=== PATIENT | female | born 1935 | race Caucasian/White ===

== ENCOUNTER → 2016-10-05 | Outpatient (CLI) | payer MEDICARE, MEDICAID ==
[~2016-10-05] MED LIST: ACET-2890 PO; ALBU18HF2 ORAL INH; ASCO-296 PO; BUDE180A INH; CITA-108 PO; CLOP75TA PO; CYAN100099 PO; DILT120C58 PO; DOCU-118 PO; FERR-22 PO; FOLI1TAB15 PO; FURO40TA70 PO; GABA-329 PO; GUAI600T PO; IPRA3AMP AEROSOL; LACO150T2 PO; LEVO125T11 PO; LORA1TAB3 PO; MAGN400O4 PO; MENT71OI TOP; MIRT30TA6 PO; ONDA-55 PO; PANT40TA27 PO; PHEN300C4 PO; POLY17PO6 PO; POTA10CA32 PO; PSYL1PAC PO; RISP0.5T12 PO; ROPI1TAB12 PO; SPIR25TA69 PO; [UNRECOGNIZED DRUG - CODE] PO
[2016-10-05 07:08] LABS: BASOPHILS # (AUTO) 0.1 T/MM3 (0-0.2); BASOPHILS % (AUTO) 0.8 % (0-2); EOSINOPHILS # (AUTO) 0.3 T/MM3 (0-0.5); EOSINOPHILS % (AUTO) 4.4 % (0-4); HCT - HEMATOCRIT 38.5 % (36-46); HGB - HEMOGLOBIN 12.7 GM/DL (12-16); IMMATURE GRANULOCYTE # (AUTO) 0.02 T/MM3 (0.00-0.03); IMMATURE GRANULOCYTE % (AUTO) 0.3 % (0.0-0.5); LYMPHOCYTES # (AUTO) 1.8 T/MM3 (1-4.8); LYMPHOCYTES % (AUTO) 23.5 % (23-45); MEAN CORPUSCULAR HGB 32.6 UUG (26-34); MEAN PLATELET VOLUME 10.6 UM3 (9.4-12.4); MONOCYTES # (AUTO) 0.6 T/MM3 (0-0.8); MONOCYTES % (AUTO) 7.3 % (0-9.0); NEUTROPHILS #(AUTO)-ABSOLUTE 4.8 T/MM3 (1.8-7.7); NEUTROPHILS % (AUTO) 63.7 % (33-66); RED BLOOD COUNT 3.89 M/MM3 (4.00-5.20); WBC - WHITE BLOOD COUNT 7.5 T/MM3 (4.5-11.0)
== END ==
LOC: LABNH.A202 00:20
PROVIDERS: ATTEND Internal Medicine
DX: D64.9 Anemia, unspecified (principal)
CPT/HCPCS: 36415; 85025; P9604

== ENCOUNTER → 2016-10-12 | Outpatient (CLI) | payer MEDICARE, MEDICAID | LOC: LABNH.A213 00:51 | PROVIDERS: ATTEND Internal Medicine | DX: Z53.8 Procedure and treatment not carried out for other reasons (principal) | CPT/HCPCS: 36415 ==

== ENCOUNTER → 2016-11-30 | Outpatient (CLI) | payer MEDICARE, MEDICAID ==
--- NOTE | 2016-11-30 10:14 | DI ---
Indication: ITS.REASON: M25.571 RIGHT ANKLE PAIN PROCEDURE: ANKLE RIGHT 3 VIEW: Encounter: Initial Comparison: June 03, 2011 Findings: There is no acute fracture, dislocation or malalignment identified. Mild lateral soft tissue swelling. Impression: No acute osseous abnormality. .
== END ==
LOC: IMA 09:29
PROVIDERS: ATTEND Nurse Practitioner Family
DX: M79.89 Other specified soft tissue disorders (principal); Z91.81 History of falling; M25.571 Pain in right ankle and joints of right foot

== ENCOUNTER → 2016-11-30 | Outpatient (CLI) | payer MEDICARE, MEDICAID ==
[2016-11-30 08:20] LABS: BASOPHILS # (AUTO) 0.1 T/MM3 (0-0.2); BASOPHILS % (AUTO) 1.1 % (0-2); EOSINOPHILS # (AUTO) 0.3 T/MM3 (0-0.5); EOSINOPHILS % (AUTO) 4.2 % (0-4); HCT - HEMATOCRIT 40.8 % (36-46); HGB - HEMOGLOBIN 13.4 GM/DL (12-16); IMMATURE GRANULOCYTE # (AUTO) 0.03 T/MM3 (0.00-0.03); IMMATURE GRANULOCYTE % (AUTO) 0.4 % (0.0-0.5); LYMPHOCYTES # (AUTO) 1.8 T/MM3 (1-4.8); LYMPHOCYTES % (AUTO) 23.8 % (23-45); MEAN CORPUSCULAR HGB 32.7 UUG (26-34); MEAN CORPUSCULAR HGB CONC(MCHC 32.8 GM/DL (31-37); MEAN CORPUSCULAR VOLUME 99.5 UM3 (80-100); MEAN PLATELET VOLUME 10.7 UM3 (9.4-12.4); MONOCYTES # (AUTO) 0.4 T/MM3 (0-0.8); MONOCYTES % (AUTO) 5.6 % (0-9.0); NEUTROPHILS #(AUTO)-ABSOLUTE 4.9 T/MM3 (1.8-7.7); NEUTROPHILS % (AUTO) 64.9 % (33-66); WBC - WHITE BLOOD COUNT 7.6 T/MM3 (4.5-11.0)
== END ==
LOC: LABNH.A213 01:08
PROVIDERS: ATTEND Internal Medicine
DX: D64.9 Anemia, unspecified (principal)
CPT/HCPCS: 36415; 85025; P9604

== ENCOUNTER 2017-04-25 19:37 | Inpatient (IN) ==
--- OUTSIDE RECORDS SUMMARY | 2017-04-25 20:11 | External Medical Summary ---
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, not intractable, without status epilepticus Assessment Therapeutic drug monitoring Z51.81 Active Assessment Essential (primary) hypertension I10 Active Assessment Hyperlipidemia, mixed E78.2 Active Problem 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 Assessment 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 Active unspecified occlusion or stenosis of unspecified cerebral artery Problem Gastro-esophageal reflux disease K21.9 Active without esophagitis Assessment Bipolar disorder, unspecified F31.9 Active Problem Unspecified asthma, uncomplicated J45.909 Active Problem 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 Active unspecified occlusion or stenosis of unspecified cerebral artery Problem Hypothyroidism, unspecified E03.9 Active Problem Solitary pulmonary nodule R91.1 Active Problem Bipolar disorder, unspecified F31.9 Active Problem Other asthma J45.998 Active Assessment Adjustment disorder with depressed F43.21 Active mood Problem Adjustment disorder with depressed F43.21 Active mood Assessment Solitary pulmonary nodule R91.1 Active Problem 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, not intractable, without status epilepticus Problem Essential (primary) hypertension I10 Active Problem Hyperlipidemia, mixed E78.2 Active Problem 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 Problem Unspecified anemia 285.9 Active Problem Hypertension, benign 401.1 Active Problem Gastro-esophageal reflux disease K21.9 Active without esophagitis Problem Depressive disorder, not elsewhere 311 Active classified Problem Hypothyroid 244.9 Active Problem Mixed hyperlipidemia 272.2 Active Problem Mixed hyperlipidemia 272.2 Active Problem 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 Medications Medication Code Code Instructions Start End Status Dosage System Date Date ibuprofen NDC 0 200 Oral 3 2 tab Times a day Capsaicin [facility] [address]-41 0.075 % May 27Jul 17 application Externally 2015 10, to knees every 8 hours 2016 bilaterally as needed for pain Mirtazapine [facility] [address]-47 30 MG Orally December 02, 1 tablet Once a day, at 2015 before bedtime bedtime in the evening Diltiazem HCl [facility] [address]-26 120 MG Orally 1 tablet daily before meals Docusate Sodium [facility] [address]-65 100 MG Orally 1 capsule as Twice every needed day Phenytoin [facility] [address]-45 100 MG/4ML 300 mg Orally daily Zofran ODT [facility] [address]-07 4 MG Orally 1 every 6 hours as needed Folic Acid [facility] [address]-46 1 MG Orally Sept Jun 1 tablet Once every 15, 14, other day 2015 2015 Budesonide [facility] 0 180mcg BID December 02 (Inhalation) 2015 Ipratropium-Albut [facility] [address]-44 0.5-2.5 (3) 3 ml josephine MG/3ML Inhalation Four times a day Lacosamide [facility] [address]-23 150 MG Orally 1 tablet Twice a day Protonix [facility] [address]-62 40 MG Orally October 1 tablet Once a day 2015 Magnesium [facility] [address]-33 400 MG/5ML 30 ml Hydroxide Orally Once a day, as needed for constipation Menthol-Zinc [facility] [address]-92 0.45-20 % as needed Oxide Externally Twice every day as needed for rash Ropinirole HCl [facility] [address]-58 1 MG Orally 1 tablet BID Lorazepam [facility] [address]-15 1 MG Orally 1 tablet every 6 hours Diltiazem HCl ER [facility] 44814848544 120 TAKE ONE Coated Beads CAPSULE BY MOUTH DAILY Psyllium [facility] [address]-28 33 % Orally 3,4 grams daily Polyethylene [facility] [address]-87 17 Once a day 17 gram Glycol 3350 Furosemide [facility] [address]-51 40 MG Orally 1 tablet Once a day Guaifenesin [facility] [address]-92 600 mg Orally December 02, 1 tablet every 12 hours 2015 as needed for congestion Levothyroxine [facility] [address]-00 25 MCG Orally two and Sodium Once a day one-half total dose tablet on an 62.5 mcg empty stomach in the morning Spironolactone [facility] [address]-30 25 MG Orally 1 tablet BID Ascorbic Acid [facility] [address]-49 500 MG Orally 1 tablet Once a day Ventolin HFA [facility] [address]-89 108 (90 Base) 2 puffs as MCG/ACT needed Inhalation every 6hrs Gabapentin [facility] [address]-81 800 MG Orally 1 tablet Three times a day Risperidone [facility] [address]-26 0.5 MG Orally 1 tablet Twice every day Citalopram [facility] [address]-42 40 MG Orally 1 tablet Hydrobromide Once a day Bisacodyl [facility] [address]-72 5 MG Orally 1 tablet as Once a day needed Ferrous Sulfate [facility] [address]-96 325 (65 Fe) MG 1 tablet Orally Once a day Acetaminophen [facility] 288[address]24 650 MG Orally not defined Procedures Procedure Coding System Code Date OFFICE VISIT, EST-LOW COMPLEXITY (15 MIN.) CPT-4 67247 Jun 13, 2016 [facility] visit Established Patient CPT-4 G0467 Jun 13, 2016 Vital Signs Date/Time: Jun 13, 2016 Cardiac Monitoring Heart Rate 80 /min Temperature 97.1 F Weight 186. lbs Oximetry 95% on RA % Respiratory Rate 20 /min Blood Pressure Diastolic 72 mm Hg Blood Pressure Systolic 135 mm Hg Results No Known Results Summary Purpose eClinicalWorks Submission
--- OUTSIDE RECORDS SUMMARY | 2017-04-25 20:11 | External Medical Summary ---
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
--- OUTSIDE RECORDS SUMMARY | 2017-04-25 20:11 | External Medical Summary ---
[...] Medications Results No Known Results Summary Purpose [facility] Submission
--- OUTSIDE RECORDS SUMMARY | 2017-04-25 20:11 | External Medical Summary ---
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, not intractable, without status epilepticus Problem Gastro-esophageal reflux disease K21.9 Active without esophagitis Problem 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
--- OUTSIDE RECORDS SUMMARY | 2017-04-25 20:11 | External Medical Summary ---
[...] Medications Results No Known Results Summary Purpose [employer] Submission
--- OUTSIDE RECORDS SUMMARY | 2017-04-25 20:11 | External Medical Summary ---
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
--- OUTSIDE RECORDS SUMMARY | 2017-04-25 20:12 | External Medical Summary ---
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 Problem Mixed hyperlipidemia 272.2 Active Problem Unspecified anemia 285.9 Active Problem Depressive disorder, not 311 Active elsewhere classified Problem Mixed hyperlipidemia 272.2 Active Problem Hypertension, benign 401.1 Active Medications Medication Code Code Instructions Start End Status Dosage System Date Date Cyanocobalamin [facility] 34915-19 1000 MCG Orally 1 tablet 33-98 [place] [address]-11 75 MG Orally 1 tablet Bisulfate 14-05 [place] [address]-34 1 MG Orally Once 1 tablet 1 18-25 a day to 3 hours [place] [address]-23 108 (90 Base) 2 puffs as 82-20 MCG/ACT needed Inhalation every 4 [place] [address]-42 400 MG/5ML 5 ml as Hydroxide 32-40 Orally [place] [address]-71 20 MG Orally 2 tablets 43-81 Once [place] [address]-98 0.45-20 % not defined 32-03 [place] [address]-56 650 MG Orally not defined [address] [place] [address]-67 90 MCG/ACT 1 puff Flexhaler 17-06 Inhalation Twice a day Furosemide NDC 30968-34 40 MG Orally 1 tablet 99-25 [place] [address]-39 0.5-2.5 (3) 3 ml rol 23-73 MG/3ML Inhalation [place] [address]-76 800 MG Orally 1 tablet 44-01 Three times a day Phenytoin [facility] 72381-32 100 MG/4ML 300 mg 33-58 Orally Refresh [facility] 13591-40 1 % Ophthalmic 1 drop into 05-15 24 time(s) a day affected eye as needed Potassium Chloride [facility] 51580-99 20 MEQ/15ML 15 ml 00-16 (10%) Orally Once a day Bisacodyl [facility] 90724-12 5 MG Orally Once 1 tablet as 50-01 a day needed Citalopram [facility] 61052-31 40 MG Orally 0.5 tablet Hydrobromide 42-01 Once a day Spironolactone [facility] 87693-12 25 MG Orally 1 tablet 03-11 Once a day Polyethylene [facility] 62466-54 not defined Glycol 3350 89-01 Zofran ODT [facility] 91393-31 4 MG Orally not defined 69-00 Ascorbic Acid [facility] 23022-19 500 MG Orally 1 tablet 76-01 Once a day Lorazepam [facility] 05095-90 1 MG Orally 1 tablet 21-01 Twice a day Risperidone [facility] 77282-98 0.5 MG Orally 1 tablet 25-05 Once a day Docusate Sodium [facility] 31374-88 100 MG Orally 1 capsule 63-00 Once a day as needed Psyllium [facility] 73726-16 33 % Orally not defined 95-13 Ferrous Sulfate [facility] 23718-36 325 (65 Fe) MG 1 tablet 28-00 Orally Once a day Calcium Carbonate [facility] 05437-93 1500 MG Orally 1 tablet 11-12 Twice a day with food Lacosamide [facility] 44196-95 150 MG Orally 1 tablet 79-35 Twice a day Diltiazem HCl [facility] 97954-08 120 MG Orally 1 tablet 21-01 daily before meals Folic Acid [facility] 83272-39 1 MG Orally Once 1 tablet 07-19 a day Levothyroxine [facility] 46404-44 50 MCG Orally 1 tablet on Sodium 54-00 Once a day an empty stomach in the morning Procedures Procedure Coding System Code Date EXCISION, BENIGN LESION MARINA 0.6-1 CM CPT-4 86980 January 20, 2015 Lidocaine CPT-4 J2001 January 20, 2015 Vital Signs Date/Time: January 20, 2015 Cardiac Monitoring Heart Rate 63 /min Temperature 97.8 F Results No Known Results Summary Purpose eClinicalWorks Submission
--- OUTSIDE RECORDS SUMMARY | 2017-04-25 20:12 | External Medical Summary ---
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 unspecified occlusion or stenosis of unspecified cerebral artery Problem Hypothyroidism, unspecified E03.9 Active Problem Solitary pulmonary nodule R91.1 Active Problem Other asthma J45.998 Active Problem Bipolar disorder, unspecified F31.9 Active Problem Adjustment disorder with depressed F43.21 Active mood Problem 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
--- OUTSIDE RECORDS SUMMARY | 2017-04-25 20:12 | External Medical Summary ---
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998 Active Problem Unspecified anemia 285.9 Active Problem Hypertension, benign 401.1 Active Problem Gastro-esophageal reflux disease K21.9 Active without esophagitis Problem Mixed hyperlipidemia 272.2 Active Problem Depressive disorder, not elsewhere 311 Active classified Problem 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
--- OUTSIDE RECORDS SUMMARY | 2017-04-25 20:12 | External Medical Summary ---
:1934 Author Organization eClinicalWorks Care Team Providers Name Role Phone Crow Burton Provider Role Unavailable Allergies, Adverse Reactions, Alerts Substance Reaction Event Type Penicillin Info Not Available Drug Allergy Codeine Sulfate Info Not Available Drug Allergy Aspirin Info Not Available Drug Allergy Problems Problem Type Condition ICD-9 Code Onset Dates Condition Status Assessment Pain in soft tissues of limb 729.5 Active Problem Asthma 493.90 Active Assessment Sprain and strain of other 840.8 Active specified sites of shoulder and upper arm Problem Hypothyroid 244.9 Active Problem 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 Problem Mixed hyperlipidemia 272.2 Active Problem Unspecified anemia 285.9 Active Problem Depressive disorder, not 311 Active elsewhere classified Problem Mixed hyperlipidemia 272.2 Active Problem Hypertension, benign 401.1 Active Assessment Other specified diseases of 289.89 Active blood and blood-forming organs Assessment Hypothyroid 244.9 Active Assessment Mixed hyperlipidemia 272.2 Active Assessment Unspecified epilepsy without 345.90 Active mention of intractable epilepsy Assessment Hypertension, benign 401.1 Active Medications Medication Code Code Instructions Start End Status Dosage System Date Date Gabapentin [facility] 50804-39 800 MG Orally 1 tablet 44-01 [place] [address]-74 40 MG Orally 1 tablet 99-25 Once a day Levothyroxine [facility] 73795-43 25 MCG Orally two and Sodium 53-00 Once a day one-half tablet on an empty stomach in the morning Ferrous Sulfate [facility] 11987-17 325 (65 Fe) MG 1 tablet 28-00 Orally Once a day Polyethylene [facility] 82876-48 not defined Glycol 3350 89-01 Pulmicort [facility] 23553-80 90 MCG/ACT 1 puff Flexhaler 17-06 Inhalation [place] [address]-50 1 MG Orally Once 1 tablet 1 18-25 a day to 3 hours before bedtime Ipratropium-Albute [facility] 58243-11 0.5-2.5 (3) 3 ml rol 23-73 MG/3ML Inhalation Four times a day Diltiazem HCl [facility] 30385-71 120 MG Orally 1 tablet 21-01 daily before meals Refresh [facility] 56387-07 1 % Ophthalmic 1 drop into -15 24 time(s) a day affected eye as needed Psyllium [facility] 40414-29 33 % Orally not defined 95-13 Risperidone [facility] 18710-28 0.5 MG Orally 1 tablet 25-05 Once a day Ventolin HFA [facility] 85666-05 108 (90 Base) 2 puffs as 82-20 MCG/ACT needed Inhalation every 4 hrs Lorazepam [facility] 48568-93 1 MG Orally 1 tablet 21-01 Twice a day Clopidogrel [facility] 51955-29 75 MG Orally 1 tablet Bisulfate 14-05 Once a day Magnesium [facility] 92616-52 400 MG/5ML 5 ml as Hydroxide 32-40 Orally Four needed times a day Lacosamide [facility] 20017-91 150 MG Orally 1 tablet 79-35 Twice a day Cyanocobalamin [facility] 66866-31 1000 MCG Orally 1 tablet 33-98 Once a day Ascorbic Acid [facility] 68604-06 500 MG Orally 1 tablet 76-01 Once a day Calcium Carbonate [facility] 82656-40 1500 MG Orally 1 tablet 11-12 Twice a day with food Folic Acid [facility] 16571-76 1 MG Orally Once 1 tablet 07-19 a day Docusate Sodium [facility] 65311-73 100 MG Orally 1 capsule 63-00 Once a day as needed Bisacodyl [facility] 96641-46 5 MG Orally Once 1 tablet as 50-01 a day needed Protonix [facility] 37545-57 20 MG Orally 2 tablets 43-81 Once a day Citalopram [facility] 30886-07 40 MG Orally 0.5 tablet Hydrobromide 42-01 Once a day Zofran ODT [facility] 51925-17 4 MG Orally not defined 69-00 Acetaminophen [facility] 16859-10 650 MG Orally not defined 607 Potassium Chloride [facility] 13848-98 20 MEQ/15ML 15 ml 00-16 (10%) Orally Once a day Phenytoin [facility] 20144-88 100 MG/4ML 300 mg 33-58 Orally Menthol-Zinc Oxide [facility] 84304-15 0.45-20 % not defined 32-03 Externally Spironolactone [facility] 00115-98 25 MG Orally 1 tablet 03-11 Once a day Procedures Procedure Coding System Code Date OFFICE VISIT, EST-MOD. COMPLEXITY (25 MIN) CPT-4 74054 January 20, 2015 [facility] visit Established Patient CPT-4 G0467 January 20, 2015 Vital Signs Date/Time: January 20, 2015 Cardiac Monitoring Heart Rate 63 /min Weight 188.0 7/4 lbs Temperature 97.8 F Oximetry 94 % Respiratory Rate 16 /min Blood Pressure Diastolic 84 mm Hg Blood Pressure Systolic 128 mm Hg Results No Known Results Summary Purpose eClinicalWorks Submission
--- OUTSIDE RECORDS SUMMARY | 2017-04-25 20:12 | External Medical Summary ---
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
--- OUTSIDE RECORDS SUMMARY | 2017-04-25 20:12 | External Medical Summary ---
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, not intractable, without status epilepticus Problem Mixed hyperlipidemia 272.2 Active Problem Hypothyroid 244.9 Active Problem Gastro-esophageal reflux disease K21.9 Active without esophagitis Problem 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
--- OUTSIDE RECORDS SUMMARY | 2017-04-25 20:12 | External Medical Summary ---
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 Problem Hypothyroidism, unspecified E03.9 Active Problem Unspecified asthma, uncomplicated J45.909 Active Assessment Essential (primary) hypertension I10 Active Assessment Anemia, unspecified D64.9 Active Assessment Unspecified asthma, uncomplicated J45.909 Active Assessment Hypothyroidism, unspecified E03.9 Active Problem Depressive disorder, not elsewhere 311 Active classified Problem Unspecified anemia 285.9 Active Problem Other asthma J45.998 Active Problem Hypertension, benign 401.1 Active Problem Gastro-esophageal reflux disease K21.9 Active without esophagitis Problem Mixed hyperlipidemia 272.2 Active Medications Medication Code Code Instructions Start End Status Dosage [place] [address]-57 100 MG/4ML 300 mg 33-58 [place] [address]-01 4 MG Orally 1 69-00 every 6 [place] [address]-72 150 MG Orally 1 tablet 79-35 [place] [address]-81 650 MG Orally not 607 defined Budesonide NDC 0 180mcg BID December 02 (Inhalation) 2015 [place] [address]-35 120 MG Orally 1 tablet 21-01 daily before meals Guaifenesin [facility] 19324-54 600 mg Orally December 02, 1 tablet 73-06 every 12 hours 2015 [place] [address]-41 400 MG/5ML 30 ml Hydroxide 32-40 Orally Once a day, [place] [address]-06 40 MG Orally November 04, 1 tablet 41-81 Once a day [address] [facility] 16007-59 1 MG Orally 1 tablet 21- every [address] [facility] 85210-15 25 MCG Orally two and Sodium 53-00 Once a day total one-half dose 62.5 mcg tablet on an empty stomach in the morning Mirtazapine [facility] 70090-63 30 MG Orally December 02, 1 tablet - Once a day, at 2015 before bedtime bedtime in the evening Folic Acid [facility] 46018-78 1 MG Orally Once Mar 31, Jun 29, 1 tablet -19 every other day 2015 [address] [facility] 26040-51 5 MG Orally Once 1 tablet 50-01 a day as needed Menthol-Zinc Oxide [facility] 78336-73 0.45-20 % as needed 32-03 Externally Twice every day [place] [address]-65 40 MG Orally 1 tablet 99-25 Once a day Ferrous Sulfate [facility] 67157-89 325 (65 Fe) MG 1 tablet 28-00 Orally Once a day Ascorbic Acid [facility] 72256-91 500 MG Orally 1 tablet 76-01 Once a day Citalopram [facility] 04712-81 40 MG Orally 1 tablet Hydrobromide 42-01 Once a day Docusate Sodium [facility] 48487-83 100 MG Orally 1 capsule 63-00 Twice every day as needed Gabapentin [facility] 05494-76 800 MG Orally 1 tablet 44-01 Three times a day Psyllium [facility] 05332-17 33 % Orally 3,4 grams 95-[address] [facility] 61503-24 0.5 MG Orally 1 tablet 25-05 Twice every day Ipratropium-Albute [facility] 07085-63 0.5-2.5 (3) 3 ml rol 23-73 MG/3ML Inhalation Four times a day Ventolin HFA [facility] 34726-38 108 (90 Base) 2 puffs as 82-20 MCG/ACT needed Inhalation every 6hrs Spironolactone [facility] 22264-55 25 MG Orally BID 1 tablet 03- Polyethylene [facility] 97529-84 17 Once a day 17 gram Glycol 3350 89-[address] [facility] 25161-07 1 MG Orally BID 1 tablet - Procedures Procedure Coding System Code Date OFFICE VISIT, EST-LOW COMPLEXITY (15 MIN.) CPT-4 47270 Apr 08, 2016 [facility] visit Established Patient CPT-4 G0467 Apr 08, 2016 Vital Signs Date/Time: Apr 08, 2016 Cardiac Monitoring Heart Rate 62 /min Temperature 98.0 on 04/06/16 F Weight 180.8 lbs Oximetry 95% on RA % Respiratory Rate 16 /min Blood Pressure Diastolic 63 mm Hg Blood Pressure Systolic 116 mm Hg Results No Known Results Summary Purpose eClinicalWorks Submission
--- OUTSIDE RECORDS SUMMARY | 2017-04-25 20:12 | External Medical Summary ---
:1934 Author Organization [employer] Care Team Providers Name Role Phone Crow [...] Active classified Problem Unspecified anemia 285.9 Active Medications No Known Medications Results No Known Results Summary Purpose [employer] Submission
--- OUTSIDE RECORDS SUMMARY | 2017-04-25 20:12 | External Medical Summary ---
:1934 Author Organization [employer] Care Team Providers Name Role Phone Crow [...] Medications Results No Known Results Summary Purpose [employer] Submission
--- OUTSIDE RECORDS SUMMARY | 2017-04-25 20:12 | External Medical Summary ---
[...] classified Problem Unspecified anemia 285.9 Active Medications Medication Code System Code Instructions Start End Date Status Dosage Date Folic Acid [facility] 67810-938 1 MG Orally Once Mar 31, Jun 29, 1 tablet 7-19 every other day 2015 2015 Diltiazem HCl [facility] 55710-989 120 MG Orally 1 tablet 1-01 daily before meals Results No Known Results Summary Purpose eClinicalWorks Submission
--- OUTSIDE RECORDS SUMMARY | 2017-04-25 20:12 | External Medical Summary ---
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
--- OUTSIDE RECORDS SUMMARY | 2017-04-25 20:12 | External Medical Summary ---
[...] Medications Results No Known Results Summary Purpose [employer] Submission
--- OUTSIDE RECORDS SUMMARY | 2017-04-25 20:12 | External Medical Summary ---
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
--- OUTSIDE RECORDS SUMMARY | 2017-04-25 20:12 | External Medical Summary ---
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
--- OUTSIDE RECORDS SUMMARY | 2017-04-25 20:12 | External Medical Summary ---
[...] intractable epilepsy Problem Mixed hyperlipidemia 272.2 Active Assessment Gastro-esophageal reflux disease K21.9 Active without esophagitis Assessment Unspecified asthma, uncomplicated J45.909 Active Assessment Acute cystitis without hematuria N30.00 Active Assessment Anemia, unspecified D64.9 Active Problem Other asthma J45.998 Active Assessment Hypothyroidism, unspecified E03.9 Active Problem Gastro-esophageal reflux disease K21.9 Active without esophagitis Assessment Acute bronchitis, unspecified J20.9 Active Problem Depressive disorder, not elsewhere 311 Active classified Medications Medication Code Code Instructions Start End Status Dosage System Date Menthol-Zinc Oxide [facility] 67205-47 0.45-20 % as needed 32-03 Externally Twice every day [place] [address]-57 40 MG Orally 1 tablet 99-25 [place] [address]-99 100 MG Orally 1 capsule 63-00 Twice [place] [address]-70 40 MG Orally November 04, tablet 41-81 Once a day 2015 [place] [address]-95 1 MG Orally BID 1 tablet 18-25 [place] [address]-02 75 MG Orally 1 tablet Bisulfate 14-05 Once a day Diltiazem HCl [facility] 05476-44 120 MG Orally 1 tablet 21-01 daily before meals Magnesium [facility] 53647-64 400 MG/5ML 30 ml Hydroxide 32-40 Orally Once a day, as [place] [address]-07 650 MG Orally not 607 [place] [address]-03 25 MG Orally BID 1 tablet 09-24 [place] [address]-43 30 MG Orally December 02 tablet 07-19 Once a day, at 2015 before bedtime bedtime in the evening Levothyroxine [facility] 56441-20 25 MCG Orally two and Sodium 53-00 Once a day total one-half dose 62.5 mcg tablet on an empty [place] the [place] [address]-73 600 mg Orally December 02 tablet 73-06 every 12 hours 2015 as needed for congestion Bisacodyl [facility] 70839-80 5 MG Orally Once 1 tablet 50-01 a day as needed Phenytoin [facility] 38625-09 100 MG/4ML 300 mg 33-58 Orally daily Zofran ODT [facility] 93696-78 4 MG Orally 1 69-00 every 6 hours as needed Gabapentin [facility] 07842-94 800 MG Orally 1 tablet 44-01 Three times a day Ascorbic Acid [facility] 67000-35 500 MG Orally 1 tablet 76-01 Once a day Citalopram [facility] 96564-88 40 MG Orally 1 tablet Hydrobromide 42-01 Once a day Lacosamide [facility] 11413-18 150 MG Orally 1 tablet 79-35 Twice a day Ipratropium-Albute [facility] 13933-03 0.5-2.5 (3) 3 ml rol 23-73 MG/3ML Inhalation Four times a day Risperidone [facility] 30680-23 0.5 MG Orally 1 tablet 25-05 Twice every day Psyllium [facility] 20957-22 33 % Orally 3,4 grams 95-13 daily Ferrous Sulfate [facility] 05640-25 325 (65 Fe) MG 1 tablet 28-00 Orally Once a day Ventolin HFA [facility] 92203-50 108 (90 Base) 2 puffs as 82-20 MCG/ACT needed Inhalation every 6h[place] [address]-17 17 Once a day 17 gram Glycol 3350 89-01 Lorazepam [facility] 52373-76 1 MG Orally 1 tablet - every 6 hours Budesonide [facility] 0 180mcg BID December 02 (Inhalation) 2015 Procedures Procedure Coding System Code Date OFFICE VISIT, EST-LOW COMPLEXITY (15 MIN.) CPT-4 82204 January 29, 2016 [facility] visit Established Patient CPT-4 G0467 January 29, 2016 Vital Signs Date/Time: January 29, 2016 Blood Pressure Systolic 97 mm Hg Cardiac Monitoring Heart Rate 61 /min Temperature 97.2 F Oximetry 90% on RA % Respiratory Rate 18 /min Blood Pressure Diastolic 61 mm Hg Results No Known Results Summary Purpose eClinicalWorks Submission
--- OUTSIDE RECORDS SUMMARY | 2017-04-25 20:12 | External Medical Summary ---
[...] Instructions Start Date End Date Status Dosage Lorazepam [facility] [address] 1 MG Orally every 1 tablet -01 6 hours Results No Known Results Summary Purpose eClinicalWorks Submission
--- OUTSIDE RECORDS SUMMARY | 2017-04-25 20:12 | External Medical Summary ---
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 28845-41 4 MG Orally not defined 69-00 [place] [address]-90 20 MG Orally 2 tablets 43-81 Once a day Ipratropium-Albute [facility] 02062-15 0.5-2.5 (3) 3 ml rol 23-73 MG/3ML Inhalation [place] [address]-33 40 MG Orally 1 tablet 99-25 [place] [address]-26 90 MCG/ACT 1 puff Flexhaler 17-06 Inhalation [place] [address]-41 25 MCG Orally two and Sodium 53-00 Once a day one-half tablet on an empty stomach [place] the [place] [address]-60 1 MG Orally Once 1 tablet 1 18-25 a day to 3 hours before bedtime Refresh [facility] 22194-09 1 % Ophthalmic 1 drop into 11-28 24 time(s) a day affected [place] [address]-68 100 MG Orally 1 capsule 63-00 Once a day as needed Risperidone [facility] 16659-43 0.5 MG Orally 1 tablet 25-05 Once a day Lorazepam [facility] 19858-51 1 MG Orally 1 tablet 21-01 Twice a day Ventolin HFA [facility] 18793-21 108 (90 Base) 2 puffs as 82-20 MCG/ACT needed Inhalation every 4 hrs Cyanocobalamin [facility] 39862-96 1000 MCG Orally b 24, 1 tablet 33-98 every other day. 2015 Folic Acid [facility] 44963-18 1 MG Orally b 24, 1 tablet 07-19 every other day 2015 Diltiazem HCl [facility] 40719-52 120 MG Orally 1 tablet 21-01 daily before meals Menthol-Zinc Oxide [facility] 46466-05 0.45-20 % not defined 32-03 Externally Magnesium [facility] 82792-14 400 MG/5ML 5 ml as Hydroxide 32-40 Orally Four needed times a day Clopidogrel [facility] 49380-49 75 MG Orally 1 tablet Bisulfate 14-05 Once a day Ascorbic Acid [facility] 48051-15 500 MG Orally 1 tablet 76-01 Once a day Lacosamide [facility] 86635-39 150 MG Orally 1 tablet 79-35 Twice a day Ferrous Sulfate [facility] 82118-19 325 (65 Fe) MG 1 tablet 28-00 Orally Once a day Gabapentin [facility] 98678-12 800 MG Orally 1 tablet 44-01 Three times a day Bisacodyl [facility] 42935-53 5 MG Orally Once 1 tablet as 50-01 a day needed Psyllium [facility] 58448-80 33 % Orally not defined 95-[address] [facility] 64496-39 650 MG Orally not defined [address] [facility] 84225-47 100 MG/4ML 300 mg 33-58 Orally Citalopram [facility] 30687-17 40 MG Orally 0.5 tablet Hydrobromide 42-01 Once a day Calcium Carbonate [facility] 65109-46 1500 MG Orally 1 tablet 11-12 Twice a day with food Potassium Chloride [facility] 05656-17 20 MEQ/15ML 15 ml 00-16 (10%) Orally Once a day Polyethylene [facility] 12085-50 not defined Glycol 3350 89-[address] [facility] 27912-76 25 MG Orally 1 tablet 03-11 Once a day Procedures Procedure Coding System Code Date OFFICE VISIT, EST-LOW COMPLEXITY (15 MIN.) CPT-4 52706 Jul 24, 2015 [facility] visit Established Patient CPT-4 G0467 Jul 24, 2015 Vital Signs Date/Time: Jul 24, 2015 Blood Pressure Systolic 118 mm Hg Cardiac Monitoring Heart Rate 61 /min Temperature 97.0 F Oximetry 92% on RA % Respiratory Rate 18 /min Blood Pressure Diastolic 60 mm Hg Results No Known Results Summary Purpose eClinicalWorks Submission
--- OUTSIDE RECORDS SUMMARY | 2017-04-25 20:12 | External Medical Summary ---
[...] Medications Results No Known Results Summary Purpose [employer] Submission
--- OUTSIDE RECORDS SUMMARY | 2017-04-25 20:13 | External Medical Summary ---
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
--- OUTSIDE RECORDS SUMMARY | 2017-04-25 20:13 | External Medical Summary ---
[...] Medications Results No Known Results Summary Purpose [employer] Submission
--- OUTSIDE RECORDS SUMMARY | 2017-04-25 20:13 | External Medical Summary ---
[...] Medications Results No Known Results Summary Purpose [employer] Submission
--- OUTSIDE RECORDS SUMMARY | 2017-04-25 20:13 | External Medical Summary ---
[...] Medications Results No Known Results Summary Purpose [employer] Submission
--- OUTSIDE RECORDS SUMMARY | 2017-04-25 20:13 | External Medical Summary ---
:1935 Author Organization e[employer] Care Team Providers Name Role Phone Crow Burton Provider Role Unavailable Allergies, Adverse Reactions, Alerts Substance Reaction Event Type Penicillin Info Not Available Drug Allergy Codeine Sulfate Info Not Available Drug Allergy Aspirin Info Not Available Drug Allergy Problems Problem Type Condition Code Onset Dates Condition Status Assessment Acute bronchitis due to rhinovirus J20.6 Active Problem Depressive disorder, not elsewhere 311 Active classified Problem Asthma 493.90 Active Assessment Cough R05 Active Problem Mixed hyperlipidemia 272.2 Active Problem Hypothyroid 244.9 Active 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 48461-19 0.45-20 % not defined 32- [place] [address]-89 100 MG Orally Apr 18, May 02, 1 capsule - Three times a 2014 2014 as needed day as needed for cough/congestion . Ipratropium-Albute [facility] 47250-27 0.5-2.5 (3) 3 ml rol 23-73 MG/3ML Inhalation [place] [address]-83 325 (65 Fe) MG 1 tablet 28-00 Orally Once a day Pulmicort [facility] 38570-58 90 MCG/ACT 1 puff Flexhaler 17-06 Inhalation [place] [address]-98 25 MCG Orally two and Sodium 53-00 Once a day one-half tablet on [place] the [place] [address]-49 150 MG Orally 1 tablet 79-35 Twice a day Refresh [facility] 21899-61 1 % Ophthalmic 1 drop into 11-28 24 time(s) a day [place] [address]-95 800 MG Orally 1 tablet 44-01 Three times a day Phenytoin [facility] 37709-43 100 MG/4ML 300 mg 33-58 [place] [address]-09 25 MG Orally 1 tablet 03-11 Once a day Ventolin HFA [facility] 47731-84 108 (90 Base) 2 puffs as 82-20 MCG/ACT needed Inhalation every 4 hrs Ropinirole HCl [facility] 28595-23 1 MG Orally Once 1 tablet 1 18-25 a day to 3 hours before bedtime Folic Acid [facility] 81408-46 1 MG Orally Feb 24, 1 tablet 07-19 every other day 2015 Acetaminophen [facility] 84445-25 650 MG Orally not defined 607 Protonix [facility] 32184-83 20 MG Orally 2 tablets 43-81 Once a day Zofran ODT [facility] 90763-40 4 MG Orally not defined 69-00 Citalopram [facility] 64255-80 40 MG Orally 0.5 tablet Hydrobromide 42-01 Once a day Bisacodyl [facility] 27178-49 5 MG Orally Once 1 tablet as 50-01 a day needed Cyanocobalamin [facility] 84853-87 1000 MCG Orally Feb 24, 1 tablet 33-98 every other day. 2015 Furosemide [facility] 90375-58 40 MG Orally 1 tablet 99-25 Once a day Magnesium [facility] 34129-16 400 MG/5ML 5 ml as Hydroxide 32-40 Orally Four needed times a day Ascorbic Acid [facility] 13361-30 500 MG Orally 1 tablet 76-01 Once a day Docusate Sodium [facility] 27780-30 100 MG Orally 1 capsule 63-00 Once [place] [address]-16 0.5 MG Orally 1 tablet 25-05 Once a day Diltiazem HCl [facility] 34321-91 120 MG Orally 1 tablet 21-01 daily before meals Polyethylene [facility] 32259-39 not defined Glycol 3350 89-01 Clopidogrel [facility] 53065-06 75 MG Orally 1 tablet Bisulfate 14-05 Once a day Lorazepam [facility] 66597-77 1 MG Orally 1 tablet 21-01 Twice a day Psyllium [facility] 41261-08 33 % Orally not defined 95-13 Potassium Chloride [facility] 99682-07 20 MEQ/15ML 15 ml 00-16 (10%) Orally Once a day Calcium Carbonate [facility] 73550-41 1500 MG Orally 1 tablet 11-12 Twice a day with food Procedures Procedure Coding System Code Date OFFICE VISIT, EST-LOW COMPLEXITY (15 MIN.) CPT-4 19734 Apr 17, 2015 [facility] visit Established Patient CPT-4 G0467 Apr 17, 2015 Vital Signs Date/Time: Apr 17, 2015 Blood Pressure Systolic 131 mm Hg Cardiac Monitoring Heart Rate 70 /min Temperature 97.5 F Oximetry 94% on RA % Respiratory Rate 16 /min Blood Pressure Diastolic 74 mm Hg Results No Known Results Summary Purpose [employer]ClinicalWorks Submission
--- OUTSIDE RECORDS SUMMARY | 2017-04-25 20:13 | External Medical Summary ---
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 Problem Depressive disorder, not elsewhere 311 Active classified Problem Asthma 493.90 Active Problem Mixed hyperlipidemia 272.2 Active Problem Hypothyroid 244.9 Active Problem 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 Problem Hypertension, benign 401.1 Active Problem Unspecified anemia 285.9 Active Problem 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 Problem Mixed hyperlipidemia 272.2 Active Assessment Mixed hyperlipidemia E78.2 Active Assessment Acute bronchitis due to other J20.8 Active specified organisms Assessment Other constipation K59.09 Active Assessment Major depressive disorder, single F32.9 Active episode, unspecified Assessment Hypothyroidism, unspecified E03.9 Active Assessment Gastro-esophageal reflux disease K21.9 Active without esophagitis Assessment Absence epileptic syndrome, 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 2015 [place] [address]-43 120 MG Orally 1 tablet 21- daily [place] [address]-76 650 MG Orally not defined 607 [place] [address]-93 0.5 MG Orally 1 tablet 25-05 Once a day Phenytoin [facility] 79833-72 100 MG/4ML 300 mg 33-58 Orally Pulmicort [facility] 41123-82 90 MCG/ACT 1 puff Flexhaler 17-06 Inhalation Twice a day Bisacodyl [facility] 86089-73 5 MG Orally Once 1 tablet as 50-01 a day needed Folic Acid [facility] 91063-89 1 MG Orally Feb 24, 1 tablet - every other day 2015 Citalopram [facility] 87589-16 40 MG Orally 0.5 tablet Hydrobromide 42-01 Once a day Clopidogrel [facility] 02213-47 75 MG Orally 1 tablet Bisulfate 14-05 Once a day Magnesium [facility] 16455-92 400 MG/5ML 5 ml as Hydroxide 32-40 Orally Four needed times a day Psyllium [facility] 33739-88 33 % Orally not defined 95-13 Potassium Chloride [facility] 91106-01 20 MEQ/15ML 15 ml 00-16 (10%) Orally Once a day Gabapentin [facility] 98710-77 800 MG Orally 1 tablet 44-01 Three times a day Ferrous Sulfate [facility] 18281-39 325 (65 Fe) MG 1 tablet 28-00 Orally Once a day Docusate Sodium [facility] 77639-81 100 MG Orally 1 capsule 63-00 Once a day as needed Protonix [facility] 86888-12 20 MG Orally 2 tablets 43-81 Once a day Refresh [facility] 10130-72 1 % Ophthalmic 1 drop into -15 24 time(s) a day affected eye as needed Ipratropium-Albute [facility] 02477-73 0.5-2.5 (3) 3 ml rol 23-73 MG/3ML Inhalation Four times a day Lorazepam [facility] 09352-98 1 MG Orally 1 tablet 21-01 Twice a day Menthol-Zinc Oxide [facility] 82589-69 0.45-20 % not defined 32-03 Externally Ventolin HFA [facility] 12081-15 108 (90 Base) 2 puffs as 82-20 MCG/ACT needed Inhalation every 4 hrs Furosemide [facility] 54136-67 40 MG Orally 1 tablet 99-25 Once a day Ascorbic Acid [facility] 07650-75 500 MG Orally 1 tablet 76-01 Once a day Ropinirole HCl [facility] 56874-05 1 MG Orally Once 1 tablet 1 18-25 a day to 3 hours before bedtime Levothyroxine [facility] 54755-10 25 MCG Orally two and Sodium 53-00 Once a day one-half tablet on [place] [address]-69 150 MG Orally 1 tablet 79-35 Twice a day Procedures Procedure Coding System Code Date OFFICE VISIT, EST-MOD. COMPLEXITY (25 MIN) CPT-4 70841 May 22, 2015 [facility] visit Established Patient CPT-4 G0467 May 22, 2015 Vital Signs Date/Time: May 22, 2015 Blood Pressure Systolic 121 mm Hg Cardiac Monitoring Heart Rate 66 /min Temperature 97.0 F Oximetry 93% on RA % Respiratory Rate 16 /min Blood Pressure Diastolic 65 mm Hg Results No Known Results Summary Purpose eClinicalWorks Submission
--- OUTSIDE RECORDS SUMMARY | 2017-04-25 20:13 | External Medical Summary ---
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, not intractable, without status epilepticus Problem Depressive disorder, not elsewhere 311 Active classified Assessment Hemorrhage of anus and rectum K62.5 Active Problem Unspecified anemia 285.9 Active Medications Medication Code Code Instructions Start End Status Dosage System Date Date Mirtazapine [facility] 46793-56 30 MG Orally December 02 tablet - Once a day, at 2015 before bedtime bedtime in the evening Budesonide ND 0 180mcg BID December 02 (Inhalation) 2015 [place] [address]-40 25 MG Orally BID 1 tablet 03-11 [place] [address]-03 1 MG Orally 1 tablet 21-01 every 6 [place] [address]-53 0.5-2.5 (3) 3 ml rol 23-73 MG/3ML Inhalation Four [place] [address]-82 0.45-20 % as needed 32-03 Externally Twice every day as needed for rash Zofran ODT [facility] 00003-95 4 MG Orally 1 69-00 every 6 [place] [address]-43 25 MCG Orally two and Sodium 53-00 Once a day total one-half dose 62.5 mcg tablet on an empty stomach in the morning Psyllium [facility] 36262-82 33 % Orally 3,4 grams 95-13 daily Bisacodyl [facility] 49988-52 5 MG Orally Once 1 tablet 50-01 a day as needed Acetaminophen [facility] 82676-19 650 MG Orally not 607 defined Protonix [facility] 43936-70 40 MG Orally November 04, 1 tablet 41-81 Once a day 2015 Magnesium [facility] 51968-35 400 MG/5ML 30 ml Hydroxide 32-40 Orally Once a day, as [place] [address]-64 40 MG Orally 1 tablet 99-25 Once a day Guaifenesin [facility] 43319-10 600 mg Orally December 02, tablet 73-06 every 12 hours 2015 as needed for congestion Ascorbic Acid [facility] 56113-99 500 MG Orally 1 tablet 76-01 Once a day Polyethylene [facility] 30552-32 17 Once a day 17 gram Glycol 3350 89-01 Docusate Sodium [facility] 59900-15 100 MG Orally 1 capsule 63-00 Twice every day as needed Ropinirole HCl [facility] 38125-48 1 MG Orally BID 1 tablet 18-25 Ventolin HFA [facility] 74100-21 108 (90 Base) 2 puffs as 82-20 MCG/ACT needed Inhalation every 6hrs Phenytoin [facility] 80959-94 100 MG/4ML 300 mg 33-58 Orally daily Ferrous Sulfate [facility] 93652-25 325 (65 Fe) MG 1 tablet 28-00 Orally Once a day Risperidone [facility] 81654-68 0.5 MG Orally 1 tablet 25-05 Twice every day Citalopram [facility] 64054-56 40 MG Orally 1 tablet Hydrobromide 42-01 [place] [address]-81 800 MG Orally 1 tablet 44-01 Three times a day Diltiazem HCl [facility] 19405-14 120 MG Orally 1 tablet 21-01 daily before meals Lacosamide [facility] 75527-59 150 MG Orally 1 tablet 79-35 Twice a day Procedures Procedure Coding System Code Date OFFICE VISIT, EST-LOW COMPLEXITY (15 MIN.) CPT-4 52970 February 05, 2016 [facility] BEDS AT [facility] visit Established Patient CPT-4 G0467 February 05, 2016 Vital Signs Date/Time: February 05, 2016 Blood Pressure Systolic 114 mm Hg Cardiac Monitoring Heart Rate 70 /min Temperature 97.7 F Oximetry 96% on RA % Respiratory Rate 16 /min Blood Pressure Diastolic 61 mm Hg Results No Known Results Summary Purpose eClinicalWorks Submission
--- OUTSIDE RECORDS SUMMARY | 2017-04-25 20:13 | External Medical Summary ---
:1935 Author Organization eClinicalWorks Care Team Providers Name Role Phone Crow Burotn Provider Role Unavailable Allergies No Known Allergies [...]
--- OUTSIDE RECORDS SUMMARY | 2017-04-25 20:14 | External Medical Summary ---
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 Medications Medication Code Code Instructions Start End Status Dosage System Date Date Psyllium [facility] [address]-42 33 % Orally 3,4 grams daily Phenytoin [facility] [address]-52 100 MG/4ML 300 mg Orally daily Furosemide [facility] [address]-09 40 MG Orally 1 tablet Once a day Magnesium [facility] [address]-71 400 MG/5ML 30 ml Hydroxide Orally Once a day, as needed for constipation Lorazepam [facility] [address]-49 1 MG Orally 1 tablet every 6 hours Bisacodyl [facility] [address]-17 5 MG Orally 1 tablet as Once a day needed Ascorbic Acid [facility] [address]-19 500 MG Orally 1 tablet Once a day Spironolactone [facility] [address]-84 25 MG Orally 1 tablet BID Docusate Sodium [facility] [address]-54 100 MG Orally 1 capsule as Twice every needed day Mirtazapine [facility] [address]-15 30 MG Orally December 02, 1 tablet Once a day, at 2015 before bedtime bedtime in the evening Diltiazem HCl ER [facility] 21429106805 120 TAKE ONE Coated Beads CAPSULE BY MOUTH DAILY Folic Acid [facility] [address]-67 1 MG Orally Sept Dec 1 tablet Once every 15, 14, other day 2015 2015 Ferrous Sulfate [facility] [address]-82 325 (65 Fe) MG 1 tablet Orally Once a day Gabapentin [facility] [address]-42 800 MG Orally 1 tablet Three times a day Lacosamide [facility] [address]-21 150 MG Orally 1 tablet Twice a day Polyethylene [facility] [address]-81 17 Once a day 17 gram Glycol 3350 Risperidone [facility] [address]-60 0.5 MG Orally 1 tablet Twice every day Citalopram [facility] [address]-64 40 MG Orally 1 tablet Hydrobromide Once a day Ipratropium-Albut [facility] [address]-67 0.5-2.5 (3) 3 ml josephine MG/3ML Inhalation Four times a day ibuprofen ND 0 200 Oral 3 2 tab Times a day Menthol-Zinc [facility] [address]-57 0.45-20 % as needed Oxide Externally Twice every day as needed for rash Zofran ODT [facility] [address]-07 4 MG Orally 1 every 6 hours as needed Protonix [facility] [address]-02 40 MG Orally October 1 tablet Once a day 2015 Ropinirole HCl [facility] [address]-33 1 MG Orally 1 tablet BID Capsaicin [facility] [address]-88 0.075 % May 27Jul 17 application Externally 2016 04, to knees every 8 hours 2016 bilaterally as needed for pain Budesonide ND 0 180mcg BID December 02, (Inhalation) 2015 Acetaminophen [facility] [address]-54485 650 MG Orally not defined Diltiazem HCl [facility] [address]-74 120 MG Orally 1 tablet daily before meals Levothyroxine [facility] [address]-76 25 MCG Orally two and Sodium Once a day one-half total dose tablet on an 62.5 mcg empty stomach in the morning Ventolin HFA [facility] [address]-48 108 (90 Base) 2 puffs as MCG/ACT needed Inhalation every 6hrs Guaifenesin [facility] [address]-24 600 mg Orally December 02, 1 tablet every 12 hours 2015 as needed for congestion Procedures Procedure Coding System Code Date OFFICE VISIT, EST-LOW COMPLEXITY (15 MIN.) CPT-4 71743 May 27, 2016 [facility] visit Established Patient CPT-4 G0467 May 27, 2016 Vital Signs Date/Time: May 27, 2016 Blood Pressure Systolic 103 mm Hg Cardiac Monitoring Heart Rate 72 /min Temperature 97.7 F Oximetry 92% on RA % Respiratory Rate 18 /min Blood Pressure Diastolic 62 mm Hg Results No Known Results Summary Purpose eClinicalWorks Submission
--- OUTSIDE RECORDS SUMMARY | 2017-04-25 20:14 | External Medical Summary ---
:1934 Author Organization [employer] Care Team Providers Name Role Phone Crow [...] epilepsy Problem Mixed hyperlipidemia 272.2 Active Assessment Acute bronchitis, unspecified J20.9 Active Problem Other asthma J45.998 Active Problem Gastro-esophageal reflux disease K21.9 Active without esophagitis Problem Depressive disorder, not elsewhere 311 Active classified Medications No Known Medications Results No Known Results Summary Purpose [employer] Submission
--- OUTSIDE RECORDS SUMMARY | 2017-04-25 20:14 | External Medical Summary | Continuity of Care Document ---
:1935 Author Organization [facility] Allergies Active Description Code Type Severity Reaction Onset Reported/ Identified Relationship Clinical to Patient Status Yes No Known Drug N/A N/A 11/13/2013 Drug Aller Allergies gy Medications Problems Date Dx Attending Type Code Diagnosis Diagnosed By Coded 11/13/2013 Terrence CORONA, Final 244.9 HYPOTHYROIDISM NOS Shadi 11/13/2013 Terrence CORONA, Final 300.00 ANXIETY STATE NOS Shadi 11/13/2013 Terrence CORONA, Final 311 DEPRESSIVE DISORDER Shadi NEC 11/13/2013 Terrence CORONA, Final 331.9 CEREB DEGENERATION Shadi NOS 11/13/2013 Terrence CORONA, Final 345.90 EPILEPSY NOS W/O Shadi INTRACT 11/13/2013 Terrence CORONA, Final 496 CHRONIC AIRWAY OBSTR Shadi NEC 11/13/2013 Terrence CORONA, Final 801.01 CL BASE FX S IC INJ Shadi SLOC 11/13/2013 Terrence CORONA, Final 802.6 CLOSED FX ORBITAL Shadi FLOOR 11/13/2013 Terrence CORONA, 802.8 CLSD FX FACIAL BONE Shadi NEC 11/13/2013 Terrence CORONA, Final 873.42 OPEN WOUND OF Shadi FOREHEAD 11/13/2013 Terrence CORONA, Final 916.0 ABRASION LE W/O Shadi INFECT 11/13/2013 Terrence CORONA, Final 923.03 CONTUSION OF UPPER Shadi ARM 11/13/2013 Terrence CORONA, Admitting 959.09 FACE NECK INJURY Shadi 11/13/2013 Terrence CORONA, External E884.3 FALL FROM WHEELCHAIR Shadi Procedures Results Encounters ACCT No. Visit Discharge Status Pt. Type Provider Facility Loc./Unit Complaint Date/Time [id number] 11/13/2013 11/13/2013 DIS Emergency Terrence [facility] 8 17:02:00 20:30:[address] , [facility]
--- OUTSIDE RECORDS SUMMARY | 2017-04-25 20:14 | External Medical Summary ---
[...] Instructions Start Date End Date Status Dosage Lacosamide [facility] [address] 150 MG Orally 1 tablet -35 Twice a day Results No Known Results Summary Purpose eClinicalWorks Submission
--- OUTSIDE RECORDS SUMMARY | 2017-04-25 20:14 | External Medical Summary ---
:1935 Author Organization [employer] Care Team Providers Name Role Phone Crow [...] Medications Results No Known Results Summary Purpose [employer] Submission
--- OUTSIDE RECORDS SUMMARY | 2017-04-25 20:14 | External Medical Summary ---
[...] reflux disease K21.9 Active without esophagitis Medications Medication Code System Code Instructions Start End Date Status Dosage Date Capsaicin [facility] 34355-20 0.075 % May 27, Jul 26, 1 application 75-07 Externally every 2015 2016 to knees 8 hours as bilaterally needed for pain Results No Known Results Summary Purpose [employer] Submission
[2017-04-25] MEDS ORDERED: NS 1,000 ML IV SCH ×2 (21:15→23:45)
--- NOTE | 2017-04-25 21:19 | History & Physical Report ---
History of Present Illness Date: 04/25/17 Chief complaint: UTI and confusion HPI: patient is a pleasant 81yo female known to our clinic. she is a residential resident at [facility] here in [place], [place]. patient states she's feeling too unwell to complete history and she refuses a great many questions and physical exam requests. daughter, who is DPOA, is present for most of history today and does contribute to history. beyond this patient only answers yes and no questions. best as I can tell patient started having suprapubic abdominal pain , nausea and fevers starting about 2 to 3 days ago. it was recommended she go to the ER yesterday but she refused. she was more confused today and she did go to the ER earlier today. in the ER she was noted to have and UTI per her UA. cbc was normal there and cmp showed mild non-fasting hyperglycemia and was otherwise unremarkable. lactic acid was 3.1 and blood cultures X2 and ucx from that time are unremarkable so far. troponin was normal X1. the EKG itself does show chronic T wave inversion in the precordials as well as a QT interval on long end of normal but otherwise unremarkable. this EKG was largely unchanged from previous baseline and at least went back to 2014. BNP was unremarkable as well. CXR was unremarkable and vitals were stable. she was given a dose of rocephin 1g IV in the ER and rehydrated as well and she tolerated this well. she was discharged back to her residential on keflex. patient was still confused at her residential so the decision was made to directly admit patient. currently she states she doesn't feel much different right now than she did earlier today but she refuses to expand on this any further. vitals are stable thus far. ROS positive for fevers, chills as above. she does deny headaches, vision changes, numbness/weakness/tingling anywhere. no focal neurologic deficits. no cranial nerve symptoms, dysphagia, ear pain, sinus pain, sore throat. no URI symptoms. no falls, trauma, injuries, dizziness, syncope. she does feel generally weak and fatigued. no seizure symptoms. no chest pain, SOA, heart failure symptoms, palpitations, cough, sputum production, hemoptysis. no photophobia or meningeal symptoms. no aspiration symptoms. no abdominal pain other than noted above. nausea noted as above. has been having dry heaves off and on throughout the day but no vomiting in quite a while. no GERD symptoms, hematemesis, coffee ground emesis, melena, BRBPR, constipation, diarrhea, GI warning symptoms, abdominal distension. no rashes or skin changes. no joint pain, back pain. no new edema or leg asymmetry. no urinary/bowel incontinance and patient denies dysuria, hematuria, urinary frequency, flank pain, nocturia. nothing from history to suggest fredy, depression, anxiety. she's usually oriented to person and place but not necessarily time and even this can wax and wane. alertness has generally been mildly depressed at times but has been good for right now. otherwise review of systems limited secondary to the above. Review of Systems - Constitutional Constitutional: Present: as per HPI Comments: appetite decreased. - EENMT Eyes: Present: as per HPI Mouth/Throat: Present: as per HPI EENMT Comments: no vision changes or URI symptoms. - Cardiovascular Cardiovascular: Present: as per HPI Rhythm: Present: regular rhythm Vascular: Present: see HPI. Absent: unilateral swelling - Respiratory Respiratory: Present: as per HPI - Gastrointestinal Gastrointestinal: Present: as per HPI - Genitourinary Genitourinary: Present: as per HPI - Musculoskeletal Musculoskeletal: Present: as per HPI. Absent: joint swelling - Integumentary/Breasts Integumentary: Present: as per HPI Integumentary Comments: no new rashes or skin changes. - Neurological Neurological: Present: as per HPI - Psychiatric Psychiatric: Present: as per HPI. Absent: hallucinations, visual hallucinations - Endocrine Endocrine: Present: as per HPI Endocrine Comments: no occult thyroid symptoms. - Hematologic/Lymphatic Hematologic/Lymphatic: Present: as per HPI Hematologic/Lymphatic Comments: no abnormal bleeding. - Allergic/Immunologic Allergic/Immunologic: Present: as per HPI Allergic/Immunologic: see above for allergies and ADR's. PCN allergy noted above but patient did get in ER and tolerated well. [facility] Patient Stated Medical History Seizures Yes Hypertension Yes Sleep Apnea Yes Gastroesophageal Reflux Yes Disease Hx Incontinence Yes Osteoarthritis Yes Depression Yes Clinic Medical History (Last Updated 04/06/17 @ 15:11 by GALINA Koo ) Acute CVA (cerebrovascular accident) (Acute Medical) Aphasia (Acute Medical) Seizure (Acute Medical) Surgical History: cyst removal. skin cancer removal Family History: Family History (Last Updated 04/06/17 @ 15:12 by Leda Felipe Huber) Father Alcoholism Sister Colon cancer Heart disease Brother Heart disease Paternal Grandmother Diabetes - Social History Smoking status: Never smoker Social history: -lives at [facility]. -no alcohol use -no illicit drug use -no tobacco use Medications Home Medications Medication Instructions Recorded Confirmed Type Citalopram Hydrobromide 40 mg PO DAILY #0 02/20/09 04/25/17 History [Citalopram HBr] Potassium Chloride 10 meq PO TID #0 08/06/10 04/25/17 History Spironolactone [Aldactone] 25 mg PO BID #0 08/06/10 04/25/17 History Docusate Sodium [Colace] 100 mg PO BID #0 06/27/11 04/25/17 History Furosemide [Lasix] 40 mg PO BID #0 09/07/11 04/25/17 History Ascorbic Acid [Vitamin C] 500 mg PO DAILY #0 10/02/13 04/25/17 History Bisacodyl [Dulcolax] 5 mg PO DAILY #0 10/02/13 04/25/17 History Lacosamide [Vimpat] 150 mg PO BID #0 11/13/13 04/25/17 History Clopidogrel Bisulfate [Plavix] 75 mg PO DAILY #0 02/07/14 04/25/17 History Folic Acid 1 mg PO Q2D #0 06/08/14 04/25/17 History Budesonide Flexhaler [Pulmicort 2 puff INH BID #0 09/19/15 04/25/17 History 180 Mcgflexhaler] Gabapentin 800 mg PO TID #0 11/10/15 04/25/17 History Pantoprazole Sodium 40 mg PO DAILY #0 11/10/15 04/25/17 History Polyethylene Glycol 3350 [Miralax] 17 g PO DAILY #0 11/10/15 04/25/17 History Levothyroxine Sodium 62.5 mcg PO ACB #0 01/22/16 04/25/17 History Ferrous Sulfate 325 mg PO BID 01/11/17 04/25/17 History Ropinirole [Requip] 1 mg PO BID 01/11/17 04/25/17 History risperiDONE [Risperidone] 0.5 mg PO BID 01/11/17 04/25/17 History Acetaminophen 650 mg PO Q4H PRN 04/25/17 04/25/17 History Albuterol HFA Inhaler [Ventolin 2 puff ORAL INH Q6HR PRN 04/25/17 04/25/17 History Hfa 90 mcg/actuation] Albuterol/Ipratropium [Duoneb] 1 unit AEROSOL QID PRN 04/25/17 04/25/17 History Capsaicin 1 applic TP Q6H PRN 04/25/17 04/25/17 History Cyanocobalamin (Vitamin B-12) 1,000 mcg PO DAILY 04/25/17 04/25/17 History [Vitamin B-12] LORazepam [Ativan] 1 mg PO HS PRN 04/25/17 04/25/17 History Magnesium Hydroxide [Milk of 30 ml PO HS PRN 04/25/17 04/25/17 History Magnesia] Menthol/Zinc Oxide [Moisture 1 applic TP BID PRN 04/25/17 04/25/17 History Barrier Ointment] Mirtazapine [Remeron] 30 mg PO HS 04/25/17 04/25/17 History Nystatin 1 applic TP BID PRN 04/25/17 04/25/17 History Ondansetron Odt [Zofran Po] 4 mg PO Q6HR PRN 04/25/17 04/25/17 History Phenytoin Cap [Phenytek] 300 mg PO HS 04/25/17 04/25/17 History Propylene Glycol/Peg 400 [Systane 1 drop EACH EYE TID 04/25/17 04/25/17 History Ultra 0.4-0.3% Eye Drp] Psyllium [Metamucil] 1 packet PO DAILY PRN 04/25/17 04/25/17 History guaiFENesin [Mucinex] 600 mg PO Q12H PRN 04/25/17 04/25/17 History Allergies Allergy/AdvReac Type Severity Reaction Status Date / Time latex Allergy Severe RASH Verified 04/25/17 09:35 aspirin Allergy Unknown Verified 04/25/17 09:35 Penicillins Allergy Unknown Verified 04/25/17 09:35 codeine AdvReac Unknown NAUSEA Verified 04/25/17 09:35 Exam Vital Signs: Temperature 97.1 F 04/25/17 20:09 Pulse Rate 83 04/25/17 20:09 Respiratory Rate 20 04/25/17 20:09 Blood Pressure 176/81 H 04/25/17 20:09 Pulse Oximetry 93 04/25/17 20:09 Telemetry Rhythm: Sinus Rhythm Height/Weight/BMI: Height 1.63 m Weight 81.7 kg Body Mass Index 30.9 Comments: exam limited as above. patient is indeed able to contribute to physical exam and history but does refuse to stating she's too uncomfortable. - Constitutional Present: no acute distress (but moderately ill appearing. ), obese, cooperative (other than as noted above.), obtunded (mildly so. she is a little slower to respond than usual. ). Absent: diaphoretic, disheveled, combative, agitated, somnolent - Routine HEENT Exam Head: Present: normocephalic, atraumatic Eye: Present: EOMI, PERRL ENT: Present: mucous membranes dry (mucous membranes mildly dry. ) - Routine Neck Exam Present: supple, trachea midline. Absent: JVD, lymphadenopathy, thyromegaly, swelling, tracheal deviation, trauma, meningismus Comments: no photophobia. no clinical evidence of meningitis at this time. - Routine Chest/Breast/Axilla Exam Comments: no tenderness over chest wall. - Routine Respiratory Exam Present: CTA bilaterally. Absent: accessory muscle use, patient mechanically ventilated, dyspnea, decreased breath sounds, prolonged expiratory phase, rales , respiratory distress, rhonchi, stridor, wheezes, crackles, distant breath sounds, diminished air movement Comments: lung sounds heard in all lung varghese b/l at this time. - Routine Cardiovascular Exam Present: RRR. Absent: gallop, click, bradycardia, tachycardia, irregular rhythm , irregularly irregular Comments: no new murmurs from baseline. no new LE edema. legs symmetrical and compartments soft b/l in LE's at this time. clinically well perfused in all 4 extremities b/l at this time. pulses normal in all 4 extremities b/l at this time. - Routine Abdominal Exam Present: soft (X4 except for some mild induration right above the pubic bone. with her body habitus it's hard to tell if this is the pubic bone. ), normoactive bowel sounds (X4.), non distended (as compared to patient's usual baseline X4.), non tender (moderately tender directly over bladder area. ). Absent: tenderness (X4.), rebound, guarding, firm, rigid, organomegaly, mass Comments: no ascites or jaundice. no clinical evidence of acute abdomen at this time. no flank pain or clinical evidence of upper urinary tract infection at this time. - Routine Exam Comments: see above. - Routine Extremities Exam Comments: see above. - Routine Back/Spine/Pelvis Exam Comments: see above. - Routine Skin Exam Present: intact Comments: no skin changes or rashes to uncovered areas. - Routine Neurological Exam overall she is alert. generally oriented to person and place but time can be a bit fuzzy. exam limited as patient refuses to cooperate at times. best as I can tell TERRYRCHELSEA, EOMI, no nystagmus, consensual reflex in tact. no photophobia. DTR's/sensation/motor/muscle strength normal and symmetrical b/l in extremities X4. she does answer questions appropriately and coherently when she wishes to. no clinical evidence of depression, fredy, psychosis. - Routine Psychiatric Exam Present: cooperative. Absent: auditory hallucinations, visual hallucinations, tactile hallucinations, agitated, paranoid, manic Comments: see above. Results - Labs CBC & Chem 7: 04/25/17 21:31 04/25/17 21:30 Assessment and Plan DVT Prophylaxis: SCD's GI Prophylaxis: Protonix (continue PO protonix from home. ), other (PO diet as noted below.) Resuscitation Status: Do Not Resuscitate (patient is DNR/DNI.) Assessment and Plan: acute UTI with altered mental status, nausea/vomiting, abdominal pain, sepsis workup in progress mild to moderate dehydration hypertension hypothyroid depression anxiety COPD asthma iron deficiency seizure disorder obstructive sleep apnea insomnia chronic peripheral neropathy history of TIA's and cerebrovascular disease, reassuring neurologic exam at this time. no evidence of acute primary neurologic event chronic tinea interigo -admit to inpatient, routine vitals with call parameters, I's and O's, daily weights, cardiac diet, activity up with assist only, oxygen as needed. continue home Oxygen at night. patient has reportedly refused CPAP in the past. -cbc, cmp, lactic acid, procalcitonin, crp, UA, urine culture, blood cultures X2, mg, phos, coags, TSH, dilantin, CK level now. will follow on urine CX as well as bcx X2 done earlier today in ER. see above for results of other testing done in the ER. EKG from today non acute and QT interval looks stable. see above for further EKG interpretation. -non contract CT ab/pelvis and non contrast CT head now. -cbc, cmp, troponin, lactic acid in the AM. call parameters given. -IV normal saline 500ml bolus wide open now and then follow with 75ml/hr. start rocephin 1g IV daily. continue home vitamin C, iron, albuterol nebs prn, ventolin prn. parameters put on albuterol inhaler and nebulizers. continue home lacosamide, barrier cream prn, budesonide inhaled, mucinex, vitamin B12, potassium chloride. hold home PO zofran and convert to IV prn zofran. continue PO folic acid, celexa, risperdone. decrease gabapentin to 400mg PO TID for now secondary to altered mentation. continue home PO lasix and spironolactone and put hold parameters on bp meds. continue home dilantin, plavix, synthroid. decrease home remeron to 15mg PO daily from 30mg PO daily given mental status. continue home PO prn tylenol. continue prn topical nystatin powder. holding home low dose ativan prn at night given altered mentation. -further management pending the above. constipation chronic dyspepsia -continue home bisacodyl, docusate, mild of magnesia, miralax, metamucil, mylanta. RLS -continue home ropinirole osteoarthritis -continue home capsasin topical prn and tylenol prn as above. dry eye -continue cristiana systane eye drops. GERD -continue home protonix. all other chronic medical conditions stable and no other changes to plan of care at this time. ppx -SCD's for DVT ppx at this time. pending results of the above testing we may add pharmacologic DVT ppx. -continue home protonix and give PO diet. -DNR/DNI. daughter, who is DPOA is at bedside and patient is coherent enough to confirm this. patient and DPOA consulted on indications for and details of cardiopulmonary rescuscitation including meds to restart heart, intubation and mechanical ventilation, defibrillation and chest compression. patient is able to tell me she wants none of this and her daughter confirms this. this is consistent with my previous experience with the patient. we will abide patient's wishes in this regard. -dispo heavily dependent on the above. - Time spent with patient Time with patient PN: 50 minutes Sepsis Assessment - Evaluation SIRS Criteria: acute mental status change
[2017-04-25] MEDS ORDERED: ACETAMINOPHEN 325 MG TABLET PO PRN (22:21)
[2017-04-25] MEDS ORDERED: CALMOSEPTINE OINTMENT 3.5gm PACKET TP PRN (22:27)
[2017-04-25] MEDS ORDERED: GUAIFENESIN LA 600 MG TABLET PO PRN (22:27)
[2017-04-25] MEDS ORDERED: PSYLLIUM PACKET PO PRN (22:33)
[2017-04-26] MEDS: ONDANSETRON 4 MG/2 ML INJECTION IVP PRN ×3 (00:22→13:28)
[2017-04-26] MEDS: FOLIC ACID 1 MG TABLET PO SCH (02:35)
[2017-04-26] MEDS: SALINE FLUSH 10ml SYRINGE IV PRN (05:54)
[2017-04-26] MEDS: LEVOTHYROXINE 125 MCG TABLET PO SCH (05:55)
--- NOTE | 2017-04-26 08:08 | CT Scan Report ---
Indication: abd pain PROCEDURE: CT renal wo con (stone tj): Encounter: Initial Comparison: None Technique: Axial CT images were performed through the abdomen and pelvis without intravenous contrast. Coronal and sagittal two-dimensional reformats. Automated Exposure Control and Iterative Reconstruction dose reducing techniques were utilized. Findings: Mild atelectasis in the lung bases. Large hiatal hernia with an intrathoracic stomach. The unenhanced contours of the liver grossly normal. Gallbladder is absent. The spleen, pancreas and adrenal glands are within normal limits. Kidneys are unremarkable. Bladder is normal. Uterus is within normal limits. No evidence of a bowel obstruction. The appendix is normal. Bone windows show no acute findings. Age-indeterminate compression fractures of T12, L1 and L2. Impression: No acute disease process seen in the abdomen or pelvis. There is a preliminary report by [facility]. .
[2017-04-26] MEDS: BUDESONIDE INH.SOLN 0.5mg/2ml NEB AEROSOL SCH ×2 (08:14→22:00)
[2017-04-26] MEDS: ALBUTEROL/IPRATROPIUM 2.5mg-0.5mg/3ml NEB AEROSOL PRN (08:14)
--- NOTE | 2017-04-26 08:22 | CT Scan Report ---
Indication: altered mental status PROCEDURE: CT head/brain wo con: Encounter: Initial Comparison: November 10, 2015 Technique: Axial CT images through the head were performed without contrast. Iterative Reconstruction dose reducing technique was utilized. FINDINGS: Atrophy. The ventricles are stable. There are scattered areas of low attenuation in the white matter which most likely represent changes from chronic microvascular ischemia. The brainstem, cerebellum, and cerebral hemispheres otherwise have a normal morphology and CT attenuation. There is no evidence of midline displacement. No hemorrhage, signs of acute territorial stroke, mass effect, mass lesions, or edema is evident. The visualized portions of the skull base, midface, and calvarium demonstrate no abnormality. The paranasal sinuses are well aerated and free of significant disease. The tympanic and mastoid cavities appear normal. IMPRESSION: No acute intracranial abnormality or hemorrhage. There is a preliminary report by [facility]. .
[2017-04-26] MEDS ORDERED: GABAPENTIN 800 MG TABLET PO SCH (09:00)
[2017-04-26] MEDS: CEFTRIAXONE 1 G in NS 100 ML IV SCH (10:28)
[2017-04-26] MEDS ORDERED: GABAPENTIN 400 MG CAPSULE PO ONE (11:15)
[2017-04-26] MEDS: FERROUS SULFATE 324 MG TABLET PO SCH ×2 (11:29→17:43)
[2017-04-26] MEDS: ASCORBIC ACID 500 MG TABLET PO SCH ×2 (11:29→17:43)
[2017-04-26] MEDS: CITALOPRAM 40 MG TABLET PO SCH (11:29)
[2017-04-26] MEDS: Bisacodyl EC TAB 5 MG TABLET PO SCH (11:29)
[2017-04-26] MEDS: CLOPIDOGREL 75 MG TABLET PO SCH (11:29)
[2017-04-26] MEDS: DOCUSATE SODIUM 100 MG CAPSULE PO SCH ×2 (11:30→20:37)
[2017-04-26] MEDS: CYANOCOBALAMIN (B-12) 500mcg TABLET PO SCH (11:30)
[2017-04-26] MEDS: POLYETHYL GLYCOL 3350 17gm PACKET PO SCH (11:30)
[2017-04-26] MEDS: LACOSAMIDE 100mg TABLET PO SCH ×2 (11:30→20:37)
[2017-04-26] MEDS: SPIRONOLACTONE 25 MG TABLET PO SCH ×2 (11:30→20:37)
[2017-04-26] MEDS: ROPINIROLE 1 MG TABLET PO SCH ×2 (11:30→20:37)
[2017-04-26] MEDS: PANTOPRAZOLE 40 MG TABLET PO SCH (11:30)
[2017-04-26] MEDS: SYSTANE EYE DROPS 0.7ml EACH EYE SCH ×3 (11:30→20:37)
[2017-04-26] MEDS: RisperiDONE 0.5 MG TABLET PO SCH ×2 (11:30→20:37)
[2017-04-26] MEDS: FUROSEMIDE 40 MG TABLET PO SCH ×2 (11:30→17:43)
--- NOTE | 2017-04-26 12:32 | Progress Note ---
Subjective: no acute events overnight. no events called on telemetry. patient having a rough time of it today. no real changes from yesterday. still waxes and wanes as far as confusion goes. patient denies headaches, numbness/weakness/ tingling. states she just feels "sick". no chest pain, SOA. no abdominal pain and she does note this has resolved. nausea still persists. no vomiting. she's been spitting out medications and refusing to take them. patient has been able to get down her evening meds so for and this is an improvement. no dysuria, hematuria, flank pain or other urinary symptoms. no fevers overnight. no chills. no seizure symptoms. no skin changes or rashes. further review of systems impossible to obtain as patient refuses to answer stating she just feels too unwell to talk. daughter present for most of encounter today. no muscle rigidity or symptoms consistent with tardive dyskinesia or other movement disorders. no symptom consistent with serotonin syndrome or anything to that effect. oral intake poor thus far today. Objective Vital signs: Temperature 99.1 F 04/26/17 09:17 Pulse Rate 71 04/26/17 11:33 Respiratory Rate 20 04/26/17 11:33 Blood Pressure 126/60 04/26/17 11:33 Pulse Oximetry 95 04/26/17 11:33 Rhythm: Normal Sinus Rhythm Height/Weight/BMI: Height 1.63 m Weight 81.7 kg Body Mass Index 30.9 - Constitutional Present: no acute distress (but still mildly to moderately ill appearing.), obese, obtunded (no changes from yesterday's exam.). Absent: diaphoretic, disheveled, cooperative (no changes from yesterday in this regard.), combative, agitated, somnolent - Routine HEENT Exam Head: Present: normocephalic, atraumatic Eye: Present: EOMI, PERRL. Absent: conjunctival icterus, scleral injection, periorbital ecchymosis, periorbital swelling ENT: Present: mucous membranes moist - Routine Respiratory Exam Present: CTA bilaterally. Absent: accessory muscle use, patient mechanically ventilated, dyspnea, decreased breath sounds, prolonged expiratory phase, rales , respiratory distress, rhonchi, stridor, wheezes, crackles, distant breath sounds, diminished air movement Comments: lung sounds heard in all lung varghese b/l at this time. - Routine Cardiovascular Exam Comments: cardiac exam unchanged from previous. no new edema. legs symmetrical and compartments soft b/l in LE's at this time. clinically well perfused and extremities carbon printer all 4 extremities b/l at this time. - Routine Abdominal Exam Present: soft (X4.), normoactive bowel sounds (X4.), tenderness (mild tenderness over bladder area only. otherwise no tenderness in abdomen to palpation X4 quadrants. ), non distended (X4.). Absent: distended (no distension above patient's usual baseline. ), rebound, guarding, firm, rigid, organomegaly, mass Comments: no ascites or jaundice. - Routine Exam Comments: see above. no flank pain b/l at this time. no clinical evidence of upper urinary tract infection at this time. - Routine Extremities Exam Absent: cyanosis, joint swelling, pallor, extremity cold to touch Comments: see above. - Routine Back/Spine/Pelvis Exam Comments: see above. - Routine Musculoskeletal Exam Musculoskeletal: Present: no joint swelling, moving extremities well. Absent: joint swelling - Routine Skin Exam Present: intact Comments: no new rashes or skin changes to uncovered areas. - Routine Neurological Exam alertness and orientation unchanged from yesterday. CN2-12, pupillary responses , extraocular movements unchanged from previous. DTR's/sensation/motor/muscle strength unchanged from yesterday in extremities X4. cognition unchanged from yesterday. - Routine Lymphatic Exam Lymphatic: Absent: lymphedema - Routine Psychiatric Exam Absent: cooperative (see above. no changes from yesterday.), agitated, paranoid , manic Comments: affect unchanged from yesterday. see the above. - Additional findings Additional findings: exam is limited as patient refuses to comply with much of the physical exam noting she just feels tired and ill and doesn't want to. the above is as best as can be ascertained based on this. Results - Labs CBC & Chem 7: 04/26/17 04:38 04/26/17 04:38 Microbiology Results: Microbiology 04/25/17 21:30 Peripheral/Iv Start Blood Culture - Preliminary Culture Initiated - Results Pending 04/25/17 21:36 Peripheral/Iv Start Blood Culture - Preliminary Culture Initiated - Results Pending Assessment and Plan DVT Prophylaxis: SCD's, Lovenox GI Prophylaxis: Protonix (contnue home protonix.), other (continue PO diet.) Resuscitation Status: Do Not Resuscitate (DNR/DNI.) Assessment and Plan: acute UTI and sepsis syndrome with altered mental status, nausea/vomiting, abdominal pain mild to moderate dehydration, resolved hypertension hypothyroid depression anxiety COPD asthma iron deficiency seizure disorder obstructive sleep apnea insomnia chronic peripheral neropathy history of TIA's and cerebrovascular disease chronic tinea interigo -continue inpatient, routine vitals with call parameters, I's and O's, daily weights, activity up with assist only, oxygen as needed. continue home oxygen at night. will write for home CPAP and see if patient tolerates it. ST recommending full liquid diet. I think some of her issues today are missing doses of her PO meds. she seems to be tolerating these now. would not want to add any further anti-emetics unless absolutely nescessary given current anti-psychotics. -cbc's normal. cmp's with mild elevation in fasting blood sugar and otherwise unremarkable. lactic acids and procalcitonin ok. coags, mg, phos, tsh, ok. ck mildly and non-specifically elevated at 216. dilantin at 9.0 which is just low of normal but levels have been ok in the past and no seizures recently so will continue dilantin as is for now. repeat EKG this AM stable from yesterday. CRP minimally elevated at 24.3. -UA from yesterday, urine culture, blood cultures X2 still pending. urine cx from ER yesterday with echoli growing greater than 100,000 CFU with sensitivities pending. blood cultures X2 from ER yesterday negative thus far. CT head and CT ab/pelvis yesterday unremarkable. -cbc, cmp, crp in the AM. -continue IV NS at 75ml/hr as oral intake poor. continue rocephin 1g IV daily (day 2). continue current vitamin C, PO iron, albuterol nebs prn, budesonide inhaled, mucinex, vitamin B12, potassium, IV zofran prn, folic acid, celexa , risperdone, gabapentin at decreased dose, PO lasix, PO spironolactone, ventolin prn, dilantin, plavix, synthroid, remeron at decreased dose, PO tylenol prn , nystatin topical prn. continue to hold prn low dose ativan at night. hold parameters given for bp meds. parameters given for albuterol inhaler as well. -consult Dr. Cox of neurology for toxic metabolic encephalopathy and history of seizure disorder. patient follows with him as an outpatient. -further management pending the above. constipation chronic dyspepsia -continue home bisacodyl, docusate, mild of magnesia, miralax, metamucil, mylanta. RLS -continue home ropinirole osteoarthritis -continue home capsasin topical prn and tylenol prn as above. dry eye -continue cristiana systane eye drops. GERD -continue home protonix. all other chronic medical conditions stable and no other changes to plan of care at this time. ppx -SCD's for DVT ppx at this time. add lovenox SQ at DVT prophylaxis dose. -continue PO protonix and PO diet for GI prophylaxis. -DNR/DNI. -dispo heavily dependent on the above. - Time spent with patient Time with patient PN: 25 minutes Sepsis Assessment - Evaluation SIRS Criteria: acute mental status change, temperature > or equal to 100.4
--- NOTE | 2017-04-26 16:04 | Consultation ---
DATE OF CONSULTATION 04/26/[address] Burton PATIENT'S CHIEF COMPLAINT Confusion and UTI. HISTORY PRESENT ILLNESS Patient is an 81-year-old female with history of seizure disorder. Patient has not been feeling well for the past few days. Her situation progressed in the past day or so and she was admitted to [facility]. The patient has been complaining of severe lower abdominal pain associated with nausea and generalized fatigue. She was found to have a UTI based on her UA testing. She has been complaining of some mild fever and chills. She has had no headache and no confusion and no alteration of consciousness. The patient has been mildly confused or slow to react to people due to her sickness. Patient has been treated for the UTI with IV antibiotic. Her condition has improved slowly since admission. She is still complaining of abdominal pain and nausea. She has had no focal weakness or numbness and no signs of seizures. She missed one or two of her seizure dosages due to being in the ER and being treated for her UTI. Her last Dilantin level was done yesterday and it was 9 which is mildly low. The rest of her lab workup were unremarkable except for the UTI. PHYSICAL EXAMINATION On physical examination the patient, is lethargic and ill-looking. She is able to answer questions slowly and she has been complaining of severe abdominal pain and she is not feeling well. Her motor examination was normal and symmetrical in all extremities. Speech was slow and articulate. Vision was normal. Sensory examination was symmetrical to light touch. Coordination was borderline. ASSESSMENT 1. Mild metabolic encephalopathy associated with UTI. This has been gradually improving with treatment. 2. History of complex partial seizure controlled with Dilantin. Her Dilantin level is slightly diminished due to missing one or two dosages. The patient has no signs of seizure or any other loss of consciousness at present time. PLAN 1. Continue treatment for UTI and provide good fluid intake. 2. Resume normal home dosage of Dilantin. 3. Monitor for any neurological changes or confusion. [facility]
[2017-04-26] MEDS: GABAPENTIN 400 MG CAPSULE PO SCH ×2 (17:43→20:37)
[2017-04-26] MEDS ORDERED: NS 1,000 ML IV SCH (18:00)
[2017-04-26] MEDS: NS 1,000 ML IV SCH (18:32)
[2017-04-26] MEDS ORDERED: FALL RISK - PHARMACY CONSULT XX ONE (20:26)
[2017-04-26] MEDS: PHENYTOIN 300 MG CAPSULE PO SCH (20:37)
[2017-04-26] MEDS: MIRTAZAPINE 15 MG TABLET PO SCH (20:37)
[2017-04-27] MEDS: NS 1,000 ML IV SCH ×2 (01:32→09:28)
[2017-04-27] MEDS: ONDANSETRON 4 MG/2 ML INJECTION IVP PRN ×3 (04:29→16:05)
[2017-04-27] MEDS: LEVOTHYROXINE 125 MCG TABLET PO SCH (07:28)
[2017-04-27] MEDS: BUDESONIDE INH.SOLN 0.5mg/2ml NEB AEROSOL SCH ×2 (08:35→21:15)
[2017-04-27] MEDS ORDERED: ENOXAPARIN 40 MG/0.4 ML INJECTION SQ SCH (09:00)
[2017-04-27] MEDS: CEFTRIAXONE 1 G in NS 100 ML IV SCH (10:16)
[2017-04-27] MEDS: ROPINIROLE 1 MG TABLET PO SCH ×2 (11:18→20:05)
[2017-04-27] MEDS: RisperiDONE 0.5 MG TABLET PO SCH ×2 (11:18→20:03)
[2017-04-27] MEDS: CITALOPRAM 40 MG TABLET PO SCH (11:19)
[2017-04-27] MEDS: CLOPIDOGREL 75 MG TABLET PO SCH (11:19)
[2017-04-27] MEDS: LACOSAMIDE 100mg TABLET PO SCH ×2 (11:19→21:54)
[2017-04-27] MEDS: ASCORBIC ACID 500 MG TABLET PO SCH ×2 (11:47→17:24)
[2017-04-27] MEDS: Bisacodyl EC TAB 5 MG TABLET PO SCH (11:47)
[2017-04-27] MEDS: FERROUS SULFATE 324 MG TABLET PO SCH ×2 (11:47→17:24)
[2017-04-27] MEDS: SPIRONOLACTONE 25 MG TABLET PO SCH ×2 (11:48→20:05)
[2017-04-27] MEDS: GABAPENTIN 400 MG CAPSULE PO SCH ×3 (11:48→20:03)
[2017-04-27] MEDS: PANTOPRAZOLE 40 MG TABLET PO SCH (11:48)
[2017-04-27] MEDS: POLYETHYL GLYCOL 3350 17gm PACKET PO SCH (11:48)
[2017-04-27] MEDS: DOCUSATE SODIUM 100 MG CAPSULE PO SCH ×2 (11:48→20:07)
[2017-04-27] MEDS: SYSTANE EYE DROPS 0.7ml EACH EYE SCH ×3 (11:48→20:07)
[2017-04-27] MEDS: CYANOCOBALAMIN (B-12) 500mcg TABLET PO SCH (11:48)
[2017-04-27] MEDS: POTASSIUM CHLORIDE INJ 40 MEQ in NS 1,000 ML IV SCH ×2 (12:06→23:31)
[2017-04-27] MEDS ORDERED: BISACODYL 10 MG SUPPOSITORY RECTALLY PRN (14:43)
[2017-04-27] MEDS: ENOXAPARIN 40 MG/0.4 ML INJECTION SQ SCH (14:56)
[2017-04-27] MEDS: SALINE FLUSH 10ml SYRINGE IV PRN (16:05)
[2017-04-27] MEDS: ERTAPENEM 1 G in NS 100 ML IV SCH (17:24)
[2017-04-27] MEDS: PHENYTOIN 300 MG CAPSULE PO SCH (20:04)
[2017-04-27] MEDS: MIRTAZAPINE 15 MG TABLET PO SCH (20:04)
--- NOTE | 2017-04-27 20:14 | Progress Note ---
Subjective: no changes in general from the other day. confusion has waxed and wanted throughout the day per nursing. patient still complaints of lower suprapubic pain off and on. when asked questions about how she's feeling she just notes "sick". she's able to deny headaches, stroke symptoms, new abdominal pain, chest pain, cough, SOA, other urinary symptoms, flank pain but refuses to answer any further questions. daughter present at bedside today and does contribute some to history. patient did have X1 episode of normal appearing emesis earlier in the AM but none since. she's been able to keep her afternoon medications down. still only ingesting sips of water but not much in the way of food. no events called on telemetry. review of systems otherwise unobtainable secondary to persistent delerium as well as refusal. Objective Vital signs: Temperature 97.6 F 04/27/17 04:00 Pulse Rate 60 04/27/17 16:00 Respiratory Rate 18 04/27/17 16:00 Blood Pressure 121/50 04/27/17 16:00 Pulse Oximetry 90 04/27/17 16:00 Height/Weight/BMI: Height 1.63 m Weight 83.7 kg Body Mass Index 30.9 - Constitutional Present: no acute distress (patient doesn't appear ill at this time. ), obtunded (no changes from yesterday.). Absent: diaphoretic, disheveled, cooperative (no changes from previous. ), combative, agitated, somnolent - Routine HEENT Exam Head: Present: normocephalic, atraumatic ENT: Present: mucous membranes moist (clinically patienet euvolemic at this time. ) - Routine Respiratory Exam Present: CTA bilaterally. Absent: accessory muscle use, patient mechanically ventilated, dyspnea, decreased breath sounds, prolonged expiratory phase, rales , respiratory distress, rhonchi, stridor, wheezes, crackles, distant breath sounds, diminished air movement Comments: no changes from previous baseline. - Routine Cardiovascular Exam Comments: cardiac exam unchanged from previous. no new edema. legs symmetrical and compartment soft b/l in LE's at this time. extremities warm and clinically well perfused in all 4 extremities b/l at this time. - Routine Abdominal Exam Present: soft (X4.), normoactive bowel sounds (X4.), tenderness (mild tenderness over bladder area at this time. no other tenderness in abdomen X4. ), non distended (X4.). Absent: distended (no new abdominal extension.), rebound, guarding, firm, rigid, organomegaly, mass Comments: no ascites or jaundice. - Routine Exam Comments: no flank pain b/l at this time. see the above. - Routine Extremities Exam Comments: see the above. - Routine Musculoskeletal Exam Musculoskeletal: Present: moving extremities well. Absent: no joint swelling, no erythema - Routine Skin Exam Present: intact Comments: no new rashes or skin changes to uncovered areas. - Routine Neurological Exam she doesn't comply or participate with requests for neurologic exams. cranial nerves, pupillary responses, sensation/motor/muscle strength/DTR's unchanged from previous grossly X4 extremities. no changes in alertness from yesterday. generally alert to self right now but otherwise not oriented to place or tiime. - Routine Psychiatric Exam Absent: auditory hallucinations, visual hallucinations, tactile hallucinations, cooperative (but no changes from yesterday. ), agitated, paranoid, manic Results - Labs CBC & Chem 7: 04/27/17 03:59 04/27/17 03:59 Microbiology Results: Microbiology 04/25/17 21:30 Peripheral/Iv Start Blood Culture - Preliminary No Growth After 1 Day 04/25/17 21:36 Peripheral/Iv Start Blood Culture - Preliminary No Growth After 1 Day Assessment and Plan DVT Prophylaxis: SCD's, Lovenox GI Prophylaxis: Protonix (PO protonix from home. ), other (PO diet as tolerated.) Resuscitation Status: Do Not Resuscitate (DNR/DNI.) Assessment and Plan: acute UTI and sepsis syndrome from ESBL echoli with altered mental status, nausea/vomiting, abdominal pain mild to moderate dehydration and poor PO intake mild dilutional anemia hypokalemia hypertension hypothyroid depression anxiety COPD asthma iron deficiency seizure disorder obstructive sleep apnea insomnia chronic peripheral neropathy history of TIA's and cerebrovascular disease chronic tinea interigo -continue inpatient, routine vitals with call parameters, I's and O's, daily weights, activity up with assist only, oxygen as needed. continue home oxygen at night and home CPAP. continue full liquid diet. patient seems to take meds better when daughter gives them. she does have a tendency to refuse them if not given by her. would not want to add any further anti-emetics unless absolutely nescessary given current anti- psychotic medications she's on. there was mention of dark stools yesterday but this is chronic from her iron and normal for patient. FOBT negative. -cbc's with mild dilutional anemia and otherwise unremarkable. CRP down to 12 from 24 a couple of days ago. repeat EKG stable. cmp's with mild elevation in fasting glucose, K of 3.1, and otherwise unremarkable. urine CX from admission with ESBL echoli growing in greater than 100,000CFU sensitive to tobramycin and ertapenem. blood cultures X4 from admit unremarkable. -cbc, cmp in the AM. -added KCL to NS at 75ml/hr as oral intake poor still. d/c rocephin. spoke with infectious disease and would advise against tobrmycin. start ertapenem IV. daughter states patient's issue with PCN meds is nausea/vomiting and no anaphylaxis. patient able to note that there may be a rash involved but not able to tell us much and this isn't for certain. given she tolerated the rocephin without issues and, given the resistance of the ESBL echoli, the benefits of ertapenem outweigh the risks and pharmacy/infectious disease agree. continue current vitamin C, PO iron, albuterol nebs prn, budesonide inhaled, mucinex, vitamin B12, PO potassium, IV zofran prn , folic acid, celexa, risperdone, gabapentin at decreased dose, PO lasix, PO spironolactone, ventolin prn, dilantin, plavix , synthroid, remeron at decreased dose, PO tylenol prn, nystatin topical prn. continue to hold prn low dose ativan at night. hold parameters given for bp meds. parameters given for albuterol inhaler as well. -Dr. Cox of neurology consulted for anti-epeleptic med management as well as encephalopathy. he sees the patient as outpatienet. Dr. Combs of infectious disease consulted and spoken with/ case reviewed. -further management pending the above. constipation chronic dyspepsia -continue home bisacodyl, docusate, mild of magnesia, miralax, metamucil, mylanta. RLS -continue home ropinirole osteoarthritis -continue home capsasin topical prn and tylenol prn as above. dry eye -continue home systane eye drops. GERD -continue home protonix. all other chronic medical conditions stable and no other changes to plan of care at this time. ppx -SCD's for DVT ppx at this time. lovenox held initially secondary to dark stools. this is chronic and from her iron so it has been restarted. -continue PO protonix and PO diet for GI prophylaxis. -DNR/DNI. -dispo continue inpatient. hopefully response will be more robust with the ertapenem. - Time spent with patient Time with patient PN: 25 minutes Sepsis Assessment - Evaluation Confirmed Suspected Infection: Yes SIRS Criteria: acute mental status change, temperature > or equal to 100.4
[2017-04-27] MEDS: FOLIC ACID 1 MG TABLET PO SCH (21:55)
[2017-04-28] MEDS: ONDANSETRON 4 MG/2 ML INJECTION IVP PRN ×5 (00:48→21:09)
[2017-04-28] MEDS: LEVOTHYROXINE 125 MCG TABLET PO SCH (06:39)
[2017-04-28] MEDS: PANTOPRAZOLE 40 MG TABLET PO SCH (09:08)
[2017-04-28] MEDS: Bisacodyl EC TAB 5 MG TABLET PO SCH (09:08)
[2017-04-28] MEDS: DOCUSATE SODIUM 100 MG CAPSULE PO SCH ×2 (09:08→20:28)
[2017-04-28] MEDS: SYSTANE EYE DROPS 0.7ml EACH EYE SCH ×3 (09:09→20:28)
[2017-04-28] MEDS: ASCORBIC ACID 500 MG TABLET PO SCH ×2 (09:09→17:48)
[2017-04-28] MEDS: FERROUS SULFATE 324 MG TABLET PO SCH ×2 (09:13→17:48)
[2017-04-28] MEDS: BUDESONIDE INH.SOLN 0.5mg/2ml NEB AEROSOL SCH (09:15)
[2017-04-28] MEDS: ALBUTEROL 2.5mg/3ml (0.083%) NEB AEROSOL PRN (09:15)
[2017-04-28] MEDS: CITALOPRAM 40 MG TABLET PO SCH (09:16)
[2017-04-28] MEDS: CLOPIDOGREL 75 MG TABLET PO SCH (09:17)
[2017-04-28] MEDS: CYANOCOBALAMIN (B-12) 500mcg TABLET PO SCH (09:17)
[2017-04-28] MEDS: FUROSEMIDE 40 MG TABLET PO SCH ×2 (09:18→17:48)
[2017-04-28] MEDS: ENOXAPARIN 40 MG/0.4 ML INJECTION SQ SCH (09:18)
[2017-04-28] MEDS: GABAPENTIN 400 MG CAPSULE PO SCH ×3 (09:19→20:27)
[2017-04-28] MEDS: SPIRONOLACTONE 25 MG TABLET PO SCH ×2 (09:21→20:27)
[2017-04-28] MEDS: RisperiDONE 0.5 MG TABLET PO SCH ×2 (09:21→20:26)
[2017-04-28] MEDS: ROPINIROLE 1 MG TABLET PO SCH ×2 (09:21→20:27)
[2017-04-28] MEDS: LACOSAMIDE 100mg TABLET PO SCH ×2 (09:29→20:26)
[2017-04-28] MEDS: POLYETHYL GLYCOL 3350 17gm PACKET PO SCH (09:38)
[2017-04-28] MEDS: ERTAPENEM 1 G in NS 100 ML IV SCH (09:39)
--- NOTE | 2017-04-28 10:09 | Infectious Disease Consult ---
Infectious Disease Consult Date of Consultation: 04/28/17 Requesting Physician: Crow Burton Reason for Consultation: antibiotic recs History of Present Illness: Patient is not very willing to answer questions from me. I told her 2 or 3 times who I am and what I do, and she continued to tell me that she's already taken her medications this morning. Per records, patient lives at [facility], and she has had suprapubic abdominal pain, nausea and fevers starting about 3 days ago. It was recommended she go to the ER yesterday but she refused. She became more confused and she did go to the ER on 04/25. In the ER she was noted to have significant pyuria and bacteriuria on her UA. Cbc was normal there and cmp showed mild non-fasting hyperglycemia and was otherwise unremarkable. Lactic acid was 3.1. Blood cultures X2 from 04/25 are NGTD. BNP was unremarkable. CXR was unremarkable and vitals were stable. She was given a dose of rocephin 1g IV in the ER and rehydrated as well and she tolerated this well. She was discharged back to her residential on keflex. She was still noted to be confused at her residential so the decision was made to directly admit patient. Her urine culture from in the ED grew >100K col of ESBL E. coli. She was started in Invanz yesterday. She does acknowledge suprapubic pain to me, but denies other symptoms and doesn't answer some questions. I've been asked to help with antibiotics. Medications Home Medications Medication Instructions Recorded Confirmed Type Citalopram Hydrobromide 40 mg PO DAILY #0 02/20/09 04/26/17 History [Citalopram HBr] Potassium Chloride 10 meq PO TID #0 08/06/10 04/26/17 History Spironolactone [Aldactone] 25 mg PO BID #0 08/06/10 04/26/17 History Docusate Sodium [Colace] 100 mg PO BID #0 06/27/11 04/26/17 History Furosemide [Lasix] 40 mg PO BID #0 09/07/11 04/26/17 History Ascorbic Acid [Vitamin C] 500 mg PO DAILY #0 10/02/13 04/26/17 History Bisacodyl [Dulcolax] 5 mg PO DAILY #0 10/02/13 04/25/17 History Lacosamide [Vimpat] 150 mg PO BID #0 11/13/13 04/26/17 History Clopidogrel Bisulfate [Plavix] 75 mg PO DAILY #0 02/07/14 04/26/17 History Folic Acid 1 mg PO Q2D #0 06/08/14 04/26/17 History Budesonide Flexhaler [Pulmicort 2 puff INH BID #0 09/19/15 04/25/17 History 180 Mcgflexhaler] Gabapentin 800 mg PO TID #0 11/10/15 04/26/17 History Pantoprazole Sodium 40 mg PO DAILY #0 11/10/15 04/26/17 History Polyethylene Glycol 3350 [Miralax] 17 g PO DAILY #0 11/10/15 04/25/17 History Levothyroxine Sodium 62.5 mcg PO ACB #0 01/22/16 04/26/17 History Ferrous Sulfate 325 mg PO BID 01/11/17 04/26/17 History Ropinirole [Requip] 1 mg PO BID 01/11/17 04/26/17 History risperiDONE [Risperidone] 0.5 mg PO BID 01/11/17 04/26/17 History Acetaminophen 650 mg PO Q4H PRN 04/25/17 04/26/17 History Albuterol HFA Inhaler [Ventolin 2 puff ORAL INH Q6HR PRN 04/25/17 04/25/17 History Hfa 90 mcg/actuation] Albuterol/Ipratropium [Duoneb] 1 unit AEROSOL QID PRN 04/25/17 04/25/17 History Capsaicin 1 applic TP Q6H PRN 04/25/17 04/25/17 History Cyanocobalamin (Vitamin B-12) 1,000 mcg PO DAILY 04/25/17 04/25/17 History [Vitamin B-12] LORazepam [Ativan] 1 mg PO HS PRN 04/25/17 04/25/17 History Magnesium Hydroxide [Milk of 30 ml PO HS PRN 04/25/17 04/25/17 History Magnesia] Menthol/Zinc Oxide [Moisture 1 applic TP BID PRN 04/25/17 04/25/17 History Barrier Ointment] Mirtazapine [Remeron] 30 mg PO HS 04/25/17 04/25/17 History Nystatin 1 applic TP BID PRN 04/25/17 04/25/17 History Ondansetron Odt [Zofran Po] 4 mg PO Q6HR PRN 04/25/17 04/25/17 History Phenytoin Cap [Phenytek] 300 mg PO HS 04/25/17 04/25/17 History Propylene Glycol/Peg 400 [Systane 1 drop EACH EYE TID 04/25/17 04/26/17 History Ultra 0.4-0.3% Eye Drp] Psyllium [Metamucil] 1 packet PO DAILY PRN 04/25/17 04/25/17 History guaiFENesin [Mucinex] 600 mg PO Q12H PRN 04/25/17 04/25/17 History Allergies Allergy/AdvReac Type Severity Reaction Status Date / Time latex Allergy Severe RASH Verified 04/25/17 09:35 aspirin Allergy Unknown Verified 04/25/17 09:35 Penicillins Allergy Unknown Verified 04/25/17 09:35 codeine AdvReac Unknown NAUSEA Verified 04/25/17 09:35 PFSH Patient Stated Medical History Seizures Yes Hypertension Yes Sleep Apnea Yes Gastroesophageal Reflux Yes Disease Hx Incontinence Yes Osteoarthritis Yes Depression Yes Clinic Medical History (Last Updated 04/06/17 @ 15:11 by GALINA Koo ) Acute CVA (cerebrovascular accident) (Acute Medical) Aphasia (Acute Medical) Seizure (Acute Medical) Surgical History: cyst removal. skin cancer removal Family History: Family History (Last Updated 04/06/17 @ 15:12 by GALINA Koo) Father Alcoholism Sister Colon cancer Heart disease Brother Heart disease Paternal Grandmother Diabetes - Social History Smoking status: Unknown if ever smoked Substance use type: does not use Alcohol intake frequency: does not drink Current residence: [place] Review of Systems All systems PM: 10-point ROS was reviewed, no additional remarkable complaints except (suprapubic pain, denies other complaints, refuses to answer some questions) Exam Vital Signs: Temperature 97.6 F 04/28/17 08:00 Pulse Rate 61 04/28/17 08:00 Respiratory Rate 16 04/28/17 09:27 Blood Pressure 137/67 04/28/17 08:00 Pulse Oximetry 96 04/28/17 09:27 Height/Weight/BMI: Height 1.63 m Weight 85.9 kg Body Mass Index 30.9 - Constitutional Present: no acute distress - Routine HEENT Exam Head: Present: normocephalic, atraumatic Eye: Present: EOMI, PERRL ENT: Present: mucous membranes moist Comments: dentition fair - Routine Neck Exam Present: supple - Routine Respiratory Exam Present: CTA bilaterally (anteriorly). Absent: accessory muscle use - Routine Cardiovascular Exam Present: RRR. Absent: murmur - Routine Abdominal Exam Present: soft, normoactive bowel sounds, non tender. Absent: rebound, guarding - Routine Exam Comments: no rush - Routine Extremities Exam Present: edema (trace LEs). Absent: cyanosis, clubbing - Routine Skin Exam Present: intact. Absent: rash - Routine Neurological Exam Present: alert, CN II-XII intact. Absent: motor deficit oriented to place and month - Routine Psychiatric Exam Comments: flat affect Results - Labs CBC & Chem 7: 04/27/17 03:59 04/27/17 03:59 Microbiology Results: Microbiology 04/25/17 21:30 Peripheral/Iv Start Blood Culture - Preliminary No Growth After 2 Days 04/25/17 21:36 Peripheral/Iv Start Blood Culture - Preliminary No Growth After 2 Days 04/25/17: Urine culture with >100K col of ESBL E. coli Impression: UTI with ESBL E. coli AMS/encephalopathy. Unknown if she has an element of baseline dementia. Seizure disorder H/o CVA PCN allergy Recommendation: Carbapenems are the treatment of choice for ESBLs. I would give her meropenem while she's here since it's less expensive than ertapenem. Carbapenems have neglible risk in patients with PCN allergies, however, they are known to lower the seizure threshold. Aminoglycosides have a significant risk of nephrotoxicity and I would avoid them. Recommend close monitoring. I would treat her for 5-7 days, and hopefully her symptoms will resolve in that time period (it's difficult to get a reliable history from her).
[2017-04-28] MEDS: POTASSIUM CHLORIDE INJ 40 MEQ in NS 1,000 ML IV SCH ×2 (11:16→22:22)
--- NOTE | 2017-04-28 14:57 | Progress Note ---
Subjective: patient doing much better today. mentation and confusion has cleared quite a bit but still comes and goes some. denies headaches, stroke symptoms, dizziness , URI symptoms, sinus issues, fevers, chills. vitals stable overnight. taking her meds from nursing now without issues orally. no swallowing issues or aspiration symptoms. still not eating much. she is taking fluids a bit better. not much in the way of solid food yet. some nausea persists but it is improved. no rashes or skin changes. no chest pain, SOA, orthopnea, PND, new edema, leg asymmetry. still fatigued and generally weak but not feeling as systemically unwell as yesterday. no palpitations. no events called on telemetry and no acute issues/events overnight called. no abdominal pain, vomiting, diarrhea, constipation. had X1 normal appearing BM earlier today per nursing. no new abdominal distension. no hematemesis, GERD symptoms, coffee ground emesis, melena, BRBPR. no dysuria, hematuria, urinary frequency, flank pain, nocturia, urinary/bowel changes from previous baseline at this time. daughter present for most of encounter today. no new issues otherwise at this time. Objective Vital signs: Temperature 97.6 F 04/28/17 08:00 Pulse Rate 69 04/28/17 08:00 Respiratory Rate 16 04/28/17 09:27 Blood Pressure 137/67 04/28/17 08:00 Pulse Oximetry 96 04/28/17 09:27 Rhythm: Normal Sinus Rhythm Height/Weight/BMI: Height 1.63 m Weight 85.9 kg Body Mass Index 30.9 - Constitutional Present: no acute distress (patient doesn't appear ill at this time. ) Comments: not obtunded or somnolent right now. she is very cooperative with exam today. - Routine HEENT Exam Head: Present: normocephalic, atraumatic ENT: Present: mucous membranes moist - Routine Respiratory Exam Present: CTA bilaterally Comments: no crackles, wheezes, rales. no respiratory distress, retractions, accessory muscle use. no stridor or airway compromise. lung sounds heard in all lung varghese b/l at this time. moving air well. - Routine Cardiovascular Exam Comments: cardiac exam unchanged from previous. no new edema. legs symmetrical and compartments soft b/l in LE's at this time. clinically well perfused in all 4 extremities b/l at this time. - Routine Abdominal Exam Present: soft (X4.), normoactive bowel sounds (X4.), non distended (X4.), non tender (X4.) Comments: no guarding, rebound, rigidity. no jaundice or ascites. - Routine Exam Comments: no tenderness over bladder area. no flank pain b/l at this time. - Routine Extremities Exam Comments: no new joint swelling or changes. - Routine Back/Spine/Pelvis Exam Comments: see above. - Routine Musculoskeletal Exam Musculoskeletal: Present: no joint swelling, no tenderness, no erythema - Routine Skin Exam Present: intact Comments: no new skin changes or rashes to uncovered areas. - Routine Neurological Exam Present: alert oriented to person, place but not time. she is much more engaged in exam today. alertness normal. CN2-12 in tact. PERRLA. EOMI. no nystagmus. DTR's /sensation/motor/muscle strength normal and symmetrical b/l in extremities X4 at this time. otherwise no changes from previous. - Routine Lymphatic Exam Comments: no new edema. - Routine Psychiatric Exam Present: cooperative Comments: see above. no changes from previous baseline. Results - Labs CBC & Chem 7: 04/27/17 03:59 04/27/17 03:59 Microbiology Results: Microbiology 04/25/17 21:30 Peripheral/Iv Start Blood Culture - Preliminary No Growth After 2 Days 04/25/17 21:36 Peripheral/Iv Start Blood Culture - Preliminary No Growth After 2 Days Assessment and Plan DVT Prophylaxis: SCD's, Lovenox GI Prophylaxis: Protonix, other (PO diet.) Resuscitation Status: Do Not Resuscitate (DNR/DNI.) Assessment and Plan: acute UTI and sepsis syndrome from ESBL echoli with altered mental status, nausea/ vomiting, abdominal pain mild to moderate dehydration and poor PO intake mild dilutional anemia hypokalemia hypertension hypothyroid depression anxiety COPD asthma iron deficiency seizure disorder obstructive sleep apnea insomnia chronic peripheral neropathy history of TIA's and cerebrovascular disease chronic tinea interigo -continue inpatient, routine vitals with call parameters, I's and O's, daily weights, activity up with assist only, oxygen as needed. continue home oxygen at night and home CPAP. continue full liquid diet. patient taking oral meds better today. would not want to add any further anti-emetics unless absolutely nescessary given current anti- psychotic medications she's on. -cbc's with mild dilutional anemia which is predictable and bit more prominent from yesterday. otherwise cbc looks ok. cmp with mild stable hyperglycemia, a potassium which is stable at 3.1 and otherwise unremarkable. -blood cultures X2 negative to date but still officially pending. -cbc, cmp, crp in the AM. -continue IV NS at 75ml/hr with 40meq KCL per bag. replace with some extra PO potassium with supper today. continue IV ertapenem day 2. continue current vitamin C, PO iron, albuterol nebs prn, budesonide inhaled, mucinex, vitamin B12, PO potassium, IV zofran prn, folic acid, celexa, risperdone, gabapentin at decreased dose , PO lasix, PO spironolactone, ventolin prn, dilantin, plavix, synthroid, remeron at decreased dose, PO tylenol prn, nystatin topical prn. continue to hold prn low dose ativan at night. continue hold parameters given for bp meds. continue parameters given for albuterol inhaler as well. -Dr. Cox of neurology consulted for anti-epeleptic med management as well as encephalopathy. he sees the patient as outpatient. Dr. Combs of infectious disease consulted as well. -further management pending the above. constipation chronic dyspepsia -continue home bisacodyl, docusate, mild of magnesia, miralax, metamucil, mylanta. RLS -continue home ropinirole osteoarthritis -continue home capsasin topical prn and tylenol prn as above. dry eye -continue home systane eye drops. GERD -continue home protonix. all other chronic medical conditions stable and no other changes to plan of care at this time. ppx -continue SCD's and SQ lovenox at DVT prophylaxis dose for DVT ppx. -continue PO protonix and PO diet for GI prophylaxis. -DNR/DNI. -dispo continue inpatient. patient may need PICC line. - Time spent with patient Time with patient PN: 25 minutes Sepsis Assessment - Evaluation Confirmed Suspected Infection: Yes
[2017-04-28] MEDS: MIRTAZAPINE 15 MG TABLET PO SCH (20:27)
[2017-04-28] MEDS: PHENYTOIN 300 MG CAPSULE PO SCH (20:27)
[2017-04-29] MEDS: BUDESONIDE INH.SOLN 0.5mg/2ml NEB AEROSOL SCH ×3 (04:22→19:17)
[2017-04-29] MEDS: LEVOTHYROXINE 125 MCG TABLET PO SCH (06:49)
[2017-04-29] MEDS: ONDANSETRON 4 MG/2 ML INJECTION IVP PRN ×2 (06:50→20:30)
[2017-04-29] MEDS: POTASSIUM CHLORIDE INJ 40 MEQ in NS 1,000 ML IV SCH (09:03)
[2017-04-29] MEDS: ROPINIROLE 1 MG TABLET PO SCH ×2 (09:07→20:33)
[2017-04-29] MEDS: CLOPIDOGREL 75 MG TABLET PO SCH (09:07)
[2017-04-29] MEDS: ASCORBIC ACID 500 MG TABLET PO SCH ×3 (09:07→16:41)
[2017-04-29] MEDS: SPIRONOLACTONE 25 MG TABLET PO SCH ×2 (09:08→20:33)
[2017-04-29] MEDS: PANTOPRAZOLE 40 MG TABLET PO SCH (09:08)
[2017-04-29] MEDS: LACOSAMIDE 100mg TABLET PO SCH ×2 (09:08→20:32)
[2017-04-29] MEDS: DOCUSATE SODIUM 100 MG CAPSULE PO SCH ×3 (09:08→20:31)
[2017-04-29] MEDS: Bisacodyl EC TAB 5 MG TABLET PO SCH (09:08)
[2017-04-29] MEDS: CYANOCOBALAMIN (B-12) 500mcg TABLET PO SCH (09:09)
[2017-04-29] MEDS: CITALOPRAM 40 MG TABLET PO SCH (09:09)
[2017-04-29] MEDS: GABAPENTIN 400 MG CAPSULE PO SCH ×3 (09:10→20:32)
[2017-04-29] MEDS: SYSTANE EYE DROPS 0.7ml EACH EYE SCH ×3 (09:10→20:33)
[2017-04-29] MEDS: FUROSEMIDE 40 MG TABLET PO SCH ×2 (09:10→16:42)
[2017-04-29] MEDS: FERROUS SULFATE 324 MG TABLET PO SCH ×3 (09:10→16:42)
[2017-04-29] MEDS: ENOXAPARIN 40 MG/0.4 ML INJECTION SQ SCH (09:10)
[2017-04-29] MEDS: RisperiDONE 0.5 MG TABLET PO SCH ×2 (09:10→20:32)
[2017-04-29] MEDS: MEROPENEM 1 GM in NS 100 ML IV SCH ×2 (09:10→16:44)
[2017-04-29] MEDS: POLYETHYL GLYCOL 3350 17gm PACKET PO SCH (09:11)
[2017-04-29] MEDS: ALBUTEROL 2.5mg/3ml (0.083%) NEB AEROSOL PRN (10:12)
[2017-04-29] MEDS: NS 1,000 ML IV SCH (14:05)
--- NOTE | 2017-04-29 14:39 | Progress Note ---
Subjective: when asked patient notes she's doing much better today. very interactive. goes from being alert and oriented X3 to being alert and oriented X2. no abdominal pain. still incontinant of urine and has been so throughout. no incontinance of stools. no headaches, stroke symptoms, focal neurologic deficits. no fevers, chills, body aches. still feels pretty weak but definitally feels stronger than yesterday. she's a bit lightheaded when she moves around and still prefers to stay in one place. no falls, trauma, injuries. no dizziness or lightheadedness at rest. no ear pain, vertigo, sinus pain, sore throat, URI symptoms, chest pain, SOA, cough, sputum production , orthopnea, PND, new edema. no abdominal pain, nausea, vomiting, diarrhea, constipation, bloody/black stools. no BM since last visit though. had X1 large BM yesterday. no GERD symptoms. drinking fluids well but not taking much in the way of solid food yet. overall cognition is improving. no psyhiatric changes otherwise. no skin changes or new rashes. no new skin changes or rashes. no new or changing joint pain or swelling. no back pain. no events called overnight. no events on telemetry called overnight. no new issues otherwise at this time. Objective Vital signs: Temperature 97.8 F 04/29/17 07:46 Pulse Rate 67 04/29/17 12:00 Respiratory Rate 16 04/29/17 12:00 Blood Pressure 104/74 04/29/17 07:46 Pulse Oximetry 92 04/29/17 12:00 Rhythm: Normal Sinus Rhythm Height/Weight/BMI: Height 1.63 m Weight 86.2 kg Body Mass Index 30.9 - Constitutional Present: no acute distress (patient not ill appearing . ), cooperative Comments: not combative, agitation, somnolent at this time. - Routine HEENT Exam Head: Present: normocephalic, atraumatic Eye: Present: EOMI, PERRL, normal accommodation Comments: no periorbital swelling or edema. no face swelling. - Routine Respiratory Exam Present: CTA bilaterally Comments: LCTAB. no crackles, wheezes, rales. no respiratory distress, retractions, accessory muscle use. no stridor or airway compromise at this time. moving air well. lung sound heard in all lung varghese b/l at this time. - Routine Cardiovascular Exam Comments: cardiac exam unchanged from previous. no changes. no new edema. legs symmetrical and compartments soft b/l in LE's at this time. clinically well perfused in all 4 extremities b/l at this time. - Routine Abdominal Exam Present: soft (X4.), normoactive bowel sounds (X4.), non distended (X4.), non tender (X4.) Comments: no rebound, guarding, rigidity. no ascites or jaundice. - Routine Exam Comments: no tenderness over bladder area. no flank pain, b/l at this time. - Routine Extremities Exam Comments: see above. - Routine Back/Spine/Pelvis Exam Comments: see above. - Routine Musculoskeletal Exam Musculoskeletal: Present: no clubbing or cyanosis, no joint swelling, no tenderness, no erythema, moving extremities well - Routine Skin Exam Present: intact Comments: no changes to uncovered areas from previous. no new rashes or clinical evidence of skin/soft tissue infection to uncovered areas. - Routine Neurological Exam Present: alert, oriented X3, CN II-XII intact DTR's/sensatory/motor/muscle strength normal and symmetrical b/l in extremities X4 at this time. PERRLA. EOMI. no nystagmus. consensual reflex in tact. alert and oriented X3 at this time. alertness at patient's usual baseline. Results - Labs CBC & Chem 7: 04/29/17 04:24 04/29/17 04:24 Microbiology Results: Microbiology 04/25/17 21:30 Peripheral/Iv Start Blood Culture - Preliminary No Growth After 3 Days 04/25/17 21:36 Peripheral/Iv Start Blood Culture - Preliminary No Growth After 3 Days Assessment and Plan DVT Prophylaxis: SCD's, Lovenox GI Prophylaxis: Protonix, other (PO diet.) Resuscitation Status: Do Not Resuscitate (DNR/DNI.) Assessment and Plan: acute UTI and sepsis syndrome from ESBL echoli with altered mental status, nausea/ vomiting, abdominal pain, improving. mild to moderate dehydration and poor PO intake mild dilutional anemia hypokalemia hypertension hypothyroid depression anxiety COPD asthma iron deficiency seizure disorder obstructive sleep apnea insomnia chronic peripheral neropathy history of TIA's and cerebrovascular disease chronic tinea interigo -continue inpatient, routine vitals with call parameters, I's and O's, daily weights, activity up with assist only, oxygen as needed. continue home oxygen at night and home CPAP. continue full liquid diet. patient taking oral meds better but still refuses at times. would not want to add any further anti-emetics unless absolutely necessary given current anti-psychotic medications she's on. -cbc's with stable mild dilutional anemia which is stable and otherwise cbc looks ok. cmp with normal potassium and mild hyperglycemia and otherwise unchanged from previous. crp is 39 and a little elevated from a couple of days ago which doesn't match the clinical picture of improvement so will follow clinically. -blood cultures X2 negative to date. -cbc, cmp in the AM. -dc current IV fluids. start IV NS at 50ml/hr. patient switched to meropenem from ertapenem yesterday by ID and she's on day 3 of carbipenem therapy. continue current vitamin C, PO iron, albuterol nebs prn, budesonide inhaled, mucinex, vitamin B12, PO potassium, IV zofran prn, folic acid, celexa, risperdone, gabapentin at decreased dose, PO lasix, PO spironolactone, ventolin prn, dilantin, plavix, synthroid, remeron at decreased dose, PO tylenol prn, nystatin topical prn. continue to hold prn low dose ativan at night. continue hold parameters given for bp meds. continue parameters given for albuterol inhaler as well. -Dr. Cox of neurology consulted for anti-epeleptic med management as well as encephalopathy. he sees the patient as outpatient. Dr. Combs of infectious disease consulted as well. -further management pending the above. constipation chronic dyspepsia -continue home bisacodyl, docusate, mild of magnesia, miralax, metamucil, mylanta. RLS -continue home ropinirole osteoarthritis -continue home capsasin topical prn and tylenol prn as above. dry eye -continue home systane eye drops. GERD -continue home protonix. all other chronic medical conditions stable and no other changes to plan of care at this time. ppx -continue SCD's and SQ lovenox at DVT prophylaxis dose for DVT ppx. -continue PO protonix and PO diet for GI prophylaxis. -DNR/DNI. -dispo continue inpatient. patient may need PICC line. - Time spent with patient Time with patient PN: 25 minutes Sepsis Assessment - Evaluation Confirmed Suspected Infection: Yes
[2017-04-29] MEDS: SALINE FLUSH 10ml SYRINGE IV PRN (20:30)
[2017-04-29] MEDS: MIRTAZAPINE 15 MG TABLET PO SCH (20:31)
[2017-04-29] MEDS: PHENYTOIN 300 MG CAPSULE PO SCH (20:31)
[2017-04-29] MEDS: FOLIC ACID 1 MG TABLET PO SCH (22:41)
[2017-04-30] MEDS: MEROPENEM 1 GM in NS 100 ML IV SCH ×3 (01:56→16:37)
[2017-04-30] MEDS: LEVOTHYROXINE 125 MCG TABLET PO SCH (05:40)
[2017-04-30] MEDS: LACOSAMIDE 100mg TABLET PO SCH ×2 (09:18→20:57)
[2017-04-30] MEDS: CYANOCOBALAMIN (B-12) 500mcg TABLET PO SCH (09:18)
[2017-04-30] MEDS: Bisacodyl EC TAB 5 MG TABLET PO SCH (09:18)
[2017-04-30] MEDS: RisperiDONE 0.5 MG TABLET PO SCH ×2 (09:18→21:12)
[2017-04-30] MEDS: ASCORBIC ACID 500 MG TABLET PO SCH ×2 (09:18→16:36)
[2017-04-30] MEDS: DOCUSATE SODIUM 100 MG CAPSULE PO SCH ×2 (09:18→20:56)
[2017-04-30] MEDS: CITALOPRAM 40 MG TABLET PO SCH (09:19)
[2017-04-30] MEDS: SYSTANE EYE DROPS 0.7ml EACH EYE SCH ×3 (09:19→20:56)
[2017-04-30] MEDS: SPIRONOLACTONE 25 MG TABLET PO SCH ×2 (09:19→21:14)
[2017-04-30] MEDS: CLOPIDOGREL 75 MG TABLET PO SCH (09:19)
[2017-04-30] MEDS: PANTOPRAZOLE 40 MG TABLET PO SCH (09:19)
[2017-04-30] MEDS: FERROUS SULFATE 324 MG TABLET PO SCH ×2 (09:19→16:36)
[2017-04-30] MEDS: FUROSEMIDE 40 MG TABLET PO SCH ×2 (09:19→16:36)
[2017-04-30] MEDS: GABAPENTIN 400 MG CAPSULE PO SCH ×3 (09:19→21:04)
[2017-04-30] MEDS: ENOXAPARIN 40 MG/0.4 ML INJECTION SQ SCH (09:20)
[2017-04-30] MEDS: POLYETHYL GLYCOL 3350 17gm PACKET PO SCH (09:20)
[2017-04-30] MEDS: ROPINIROLE 1 MG TABLET PO SCH ×2 (09:22→21:05)
[2017-04-30] MEDS: SALINE FLUSH 10ml SYRINGE IV PRN (09:24)
[2017-04-30] MEDS: ONDANSETRON 4 MG/2 ML INJECTION IVP PRN ×2 (09:33→18:22)
[2017-04-30] MEDS: BUDESONIDE INH.SOLN 0.5mg/2ml NEB AEROSOL SCH ×2 (09:51→20:08)
[2017-04-30] MEDS: NS 1,000 ML IV SCH (10:39)
--- NOTE | 2017-04-30 16:06 | Progress Note ---
Subjective: no events called on telemetry. no acute issues overnight. patient continues to improve. only issue that persists is the nausea which is still most noticable anytime she's moved at all. she is still fairly weak as well and this is improving. she appears to have been alert and oriented for most of the day. right now she's alert and oriented X3. she knows who the president is. she does cooperate with history and physical exam. no headaches, stroke symptoms, fevers, chills. generalized weakness is improving. vital stable since last visit. no URI symptoms or sinus issues. no falls, trauma, injuries. zofran does help still. no vision changes, chest pain, SOA, orthopnea, PND new edema, leg asymmetry. no new skin changes or rashes. no palpitations, cough, sputum production, hemoptysis. no abdominal pain at all. no vomiting. no diarrhea, constipation, bloody/black stools. had X1 BM since last visit she says and it was normal. no dysuria, hematuria, urinary frequency , flank pain, nocturia. she is still incontinant of urine as noted previously so this limits this piece of history. she's not eating or drinking much right now. no mood changes and no depression symptoms. no new issues otherwise at this time. Objective Vital signs: Temperature 98.6 F 04/30/17 15:48 Pulse Rate 56 L 04/30/17 15:48 Respiratory Rate 18 04/30/17 15:48 Blood Pressure 110/59 04/30/17 15:48 Pulse Oximetry 94 04/30/17 15:48 Rhythm: Normal Sinus Rhythm Height/Weight/BMI: Height 1.63 m Weight 86.7 kg Body Mass Index 30.9 - Constitutional Present: no acute distress (patient doesn't appear ill.) Comments: not obtunded. no changes from previous. - Routine HEENT Exam Head: Present: normocephalic, atraumatic ENT: Present: mucous membranes moist - Routine Respiratory Exam Present: CTA bilaterally Comments: LCTAB. no crackles, wheezes, rales. lung sounds heard in all lung varghese b/l at this time. moving air well. no respiratory distress. - Routine Cardiovascular Exam Present: RRR Comments: cardiac exam unchanged from previous. no new edema. legs symmetrical in all 4 extremities b/l at this time. clinically well perfused in all 4 extremities b/ l at this time. - Routine Abdominal Exam Present: soft (X4.), normoactive bowel sounds (X4.), non distended (X4.), non tender (X4.) Comments: no guarding, rebound, rigidity. no ascites or jaundice. - Routine Exam Comments: no tenderness over bladder area. no flank pain b/l at this time. - Routine Extremities Exam Comments: no cyanosis or pallor of extremities. - Routine Musculoskeletal Exam Musculoskeletal: Present: no joint swelling, no tenderness, no erythema, moving extremities well - Routine Skin Exam Present: intact Comments: no skin changes from previous baseline. no clinical evidence of new cellulitis or skin/soft tissue infection. - Routine Neurological Exam alert and oriented X3 at this time. neurologically unchanged from previous baseline otherwise at this time. - Routine Lymphatic Exam Comments: no changes from previous. - Routine Psychiatric Exam Comments: see above. alert and oriented X3 at this time. no evidence of depressed mentation. not combative. otherwise no changes from previous. Results - Labs CBC & Chem 7: 04/30/17 03:56 04/30/17 03:56 Microbiology Results: Microbiology 04/25/17 21:30 Peripheral/Iv Start Blood Culture - Preliminary No Growth After 4 Days 04/25/17 21:36 Peripheral/Iv Start Blood Culture - Preliminary No Growth After 4 Days Assessment and Plan DVT Prophylaxis: SCD's, Lovenox GI Prophylaxis: Protonix, other (PO diet.) Resuscitation Status: Do Not Resuscitate (DNR/DNI.) Assessment and Plan: acute UTI and sepsis syndrome from ESBL echoli with altered mental status, nausea/ vomiting, abdominal pain, improving. mild to moderate dehydration and poor PO intake mild dilutional anemia hypokalemia, resolved. hypertension hypothyroid depression anxiety COPD asthma iron deficiency seizure disorder obstructive sleep apnea insomnia chronic peripheral neropathy history of TIA's and cerebrovascular disease chronic tinea interigo -continue inpatient, routine vitals with call parameters, I's and O's, daily weights, activity up with assist only, oxygen as needed. continue home oxygen at night and home CPAP. continue full liquid diet. patient taking oral meds better. would not want to add any further anti-emetics unless absolutely necessary given current anti- psychotic medications she's on. -cbc's with stable mild dilutional anemia which is stable and otherwise cbc looks ok. cmp with normal potassium and mild hyperglycemia and otherwise unchanged from previous. blood cultures X2 negative to date. see previous notes for other testing, discussion and results from this stay. -cbc, cmp in the AM. -increase IV NS to 75ml/hr for now. continue day 3 of merpenem. continue current vitamin C, PO iron, albuterol nebs prn, budesonide inhaled, mucinex , vitamin B12, PO potassium, IV zofran prn, folic acid, celexa, risperdone, gabapentin at decreased dose, PO lasix, PO spironolactone, ventolin prn, dilantin, plavix, synthroid, remeron at decreased dose, PO tylenol prn, nystatin topical prn. continue to hold prn low dose ativan at night. continue hold parameters given for bp meds. continue parameters given for albuterol inhaler as well. -Dr. Cox of neurology consulted for anti-epeleptic med management as well as encephalopathy. he sees the patient as outpatient. Dr. Combs of infectious disease consulted as well. -further management pending the above. constipation chronic dyspepsia -continue home bisacodyl, docusate, mild of magnesia, miralax, metamucil, mylanta. RLS -continue home ropinirole osteoarthritis -continue home capsasin topical prn and tylenol prn as above. dry eye -continue home systane eye drops. GERD -continue home protonix. all other chronic medical conditions stable and no other changes to plan of care at this time. ppx -continue SCD's and SQ lovenox at DVT prophylaxis dose for DVT ppx. -continue PO protonix and PO diet for GI prophylaxis. -DNR/DNI. -dispo continue inpatient. patient may need PICC line. - Time spent with patient Time with patient PN: 25 minutes Sepsis Assessment - Evaluation Confirmed Suspected Infection: No
[2017-04-30] MEDS: ALBUTEROL/IPRATROPIUM 2.5mg-0.5mg/3ml NEB AEROSOL PRN (20:12)
[2017-04-30] MEDS: PHENYTOIN 300 MG CAPSULE PO SCH (21:04)
[2017-04-30] MEDS: MIRTAZAPINE 15 MG TABLET PO SCH (21:04)
[2017-05-01] MEDS: MEROPENEM 1 GM in NS 100 ML IV SCH ×3 (01:52→16:38)
[2017-05-01] MEDS: NS 1,000 ML IV SCH ×2 (01:55→17:26)
[2017-05-01] MEDS: LEVOTHYROXINE 125 MCG TABLET PO SCH (06:53)
[2017-05-01] MEDS: BUDESONIDE INH.SOLN 0.5mg/2ml NEB AEROSOL SCH ×2 (09:01→22:43)
--- NOTE | 2017-05-01 09:25 | Progress Note ---
Subjective Date: 05/01/17 Subjective: Ms. Luevano initially denies any problems, but then states that she doesn't feel well. She won't really say why. On specific questioning, she admits to nausea , but denies vomiting, fever, chills, dysuria, dyspnea or diarrhea. Exam Vital Signs: Temperature 98.3 F 05/01/17 08:25 Pulse Rate 57 L 05/01/17 08:25 Respiratory Rate 16 05/01/17 09:03 Blood Pressure 107/56 05/01/17 08:25 Pulse Oximetry 99 05/01/17 09:03 Height/Weight/BMI: Height 1.63 m Weight 83.3 kg Body Mass Index 30.9 - Constitutional Present: no acute distress - Routine HEENT Exam Head: Present: normocephalic, atraumatic Eye: Present: EOMI, PERRL ENT: Present: mucous membranes moist, dentition normal - Routine Neck Exam Present: supple - Routine Respiratory Exam Present: CTA bilaterally. Absent: accessory muscle use - Routine Cardiovascular Exam Present: RRR. Absent: murmur - Routine Abdominal Exam Present: soft, normoactive bowel sounds, non distended, non tender. Absent: rebound, guarding - Routine Exam Comments: no rush - Routine Extremities Exam Absent: cyanosis, clubbing, edema - Routine Skin Exam Present: intact. Absent: rash - Routine Neurological Exam Present: alert, CN II-XII intact. Absent: motor deficit - Routine Psychiatric Exam Comments: flat affect Results - Labs CBC & Chem 7: 05/01/17 03:42 05/01/17 03:42 Microbiology Results: Microbiology 04/25/17 21:30 Peripheral/Iv Start Blood Culture - Final No Growth After 5 Days 04/25/17 21:36 Peripheral/Iv Start Blood Culture - Final No Growth After 5 Days 04/25/17: Urine culture with >100K col of ESBL E. coli Impression: UTI with ESBL E. coli AMS/encephalopathy. Unknown if she has an element of baseline dementia. Seizure disorder H/o CVA PCN allergy Recommendation: I would give her meropenem while she's here since it's less expensive than ertapenem. Today is day #5 of carbapenem therapy. I think it would be acceptable to either stop it today, or consider 2 more days of Invanz, which could be done as an outpatient. I would either use a peripheral IV or a midline.
[2017-05-01] MEDS: ENOXAPARIN 40 MG/0.4 ML INJECTION SQ SCH (09:54)
[2017-05-01] MEDS: SYSTANE EYE DROPS 0.7ml EACH EYE SCH ×3 (09:54→20:41)
[2017-05-01] MEDS: RisperiDONE 0.5 MG TABLET PO SCH ×2 (09:54→20:30)
[2017-05-01] MEDS: ROPINIROLE 1 MG TABLET PO SCH ×2 (09:54→20:32)
[2017-05-01] MEDS: PANTOPRAZOLE 40 MG TABLET PO SCH (09:55)
[2017-05-01] MEDS: FUROSEMIDE 40 MG TABLET PO SCH ×2 (09:55→16:38)
[2017-05-01] MEDS: ASCORBIC ACID 500 MG TABLET PO SCH ×2 (09:55→18:13)
[2017-05-01] MEDS: CITALOPRAM 40 MG TABLET PO SCH (09:55)
[2017-05-01] MEDS: CLOPIDOGREL 75 MG TABLET PO SCH (09:55)
[2017-05-01] MEDS: CYANOCOBALAMIN (B-12) 500mcg TABLET PO SCH (09:55)
[2017-05-01] MEDS: GABAPENTIN 400 MG CAPSULE PO SCH ×3 (09:55→20:32)
[2017-05-01] MEDS: LACOSAMIDE 100mg TABLET PO SCH ×2 (09:55→20:31)
[2017-05-01] MEDS: SPIRONOLACTONE 25 MG TABLET PO SCH ×2 (09:56→20:30)
[2017-05-01] MEDS: FERROUS SULFATE 324 MG TABLET PO SCH ×2 (09:56→18:13)
[2017-05-01] MEDS: DOCUSATE SODIUM 100 MG CAPSULE PO SCH ×2 (09:57→20:39)
[2017-05-01] MEDS: POLYETHYL GLYCOL 3350 17gm PACKET PO SCH (09:58)
[2017-05-01] MEDS: Bisacodyl EC TAB 5 MG TABLET PO SCH (09:58)
[2017-05-01 12:48] VITALS: BMI 31.6
--- NOTE | 2017-05-01 18:56 | Progress Note ---
Subjective: overall patient doing much better today. she's not really nauseous at rest. still somewhat nauseous with moving around but not like it was. she is taking fluids well. she wants to try more solid food. no abdominal pain, vomiting. had X1 stool with was large and overall formed but was a bit loose. no headaches, stroke symptoms, focal neurologic deficits, fevers, chills, body aches, URI symptoms, sinus issues. she's been alert and oriented X3 the whole day. no altered mentation. no dizziness, syncope, falls, trauma, injuries. no vision changes. still with significant generalized fatigue and weakness but this is improving. it's not back to baseline yet. no chest pain, SOA, heart failure symptoms, cough, sputum production, hemoptysis. no diarrhea, constipation, bloody/black stools, dysuria, hematuria, other urinary symptoms or changes. she is still incontinant of urine. spoke with nursing and no skin breakdown related to this as of yet and they're monitoring closely. no skin changes or new rashes. no new edema or leg asymmetry. no events called on telemetry. no acute events overnight. no mood changes or psychiatric changes. no new issues otherwise at this time. Objective Vital signs: Temperature 96.8 F 05/01/17 14:48 Pulse Rate 69 05/01/17 16:00 Respiratory Rate 16 05/01/17 14:48 Blood Pressure 118/54 05/01/17 14:48 Pulse Oximetry 93 05/01/17 14:48 Rhythm: Normal Sinus Rhythm Height/Weight/BMI: Height 1.63 m Weight 83.461 kg Body Mass Index 31.6 - Constitutional Present: no acute distress (patient not ill appearing at this time. ), cooperative Comments: not agitated, combative or somnolent. - Routine HEENT Exam Head: Present: normocephalic, atraumatic ENT: Present: mucous membranes moist - Routine Respiratory Exam Present: CTA bilaterally Comments: LCTAB. no crackles, wheezes, rales. moving air well. no respiratory distress. - Routine Cardiovascular Exam Comments: cardiac exam unchanged from previous. no new edema. legs symmetrical and compartments soft b/l in LE's at this time. clinically well perfused in all 4 extremities b/l at this time. - Routine Abdominal Exam Present: soft (X4.), normoactive bowel sounds (X4.), non distended (X4.), non tender (X4.) Comments: no organomegally, mass. no distension, jaundice, ascites. no changes from previous. - Routine Exam Comments: no tenderness over bladder area. no flank pain b/l at this time. - Routine Extremities Exam Comments: see the above. - Routine Musculoskeletal Exam Musculoskeletal: Present: no clubbing or cyanosis, no joint swelling, no tenderness, no erythema, moving extremities well - Routine Skin Exam Present: intact Comments: no new skin changes or rashes. no clinical evidence of skin/soft tissue infection to uncovered areas at this time. - Routine Neurological Exam Present: alert, oriented X3 no focal deficits grossly. no changes from previous otherwise. cooperative today. no clinical evidence of delerium, fredy, psychosis, altered mentation/ sensorum at this time. no clinical evidence of depression, anxiety at this time. patient back to her usual baseline with regards to affect and cognition at this time. - Routine Psychiatric Exam Comments: see above. no photophobia. no clinical evidence of meningitis at this time. Results - Labs CBC & Chem 7: 05/01/17 03:42 05/01/17 03:42 Microbiology Results: Microbiology 04/25/17 21:30 Peripheral/Iv Start Blood Culture - Final No Growth After 5 Days 04/25/17 21:36 Peripheral/Iv Start Blood Culture - Final No Growth After 5 Days Assessment and Plan DVT Prophylaxis: SCD's, Lovenox GI Prophylaxis: Protonix, other (PO diet.) Resuscitation Status: Do Not Resuscitate (DNR/DNI.) Assessment and Plan: acute UTI and sepsis syndrome from ESBL echoli with altered mental status, nausea/ vomiting, abdominal pain, improving. mild to moderate dehydration and poor PO intake, improving mild dilutional anemia hypokalemia, resolved. hypertension hypothyroid depression anxiety COPD asthma iron deficiency seizure disorder obstructive sleep apnea insomnia chronic peripheral neropathy history of TIA's and cerebrovascular disease chronic tinea interigo -continue inpatient, routine vitals with call parameters, I's and O's, daily weights, activity up with assist only, oxygen as needed. continue home oxygen at night and home CPAP. advance diet as tolerated. patient taking oral meds better. have ST come back and re-assess patient tomorrow. PT/OT consulted. patient still weak but is improving. -cbc's with stable mild dilutional anemia which is stable and otherwise cbc looks ok. cmp with normal potassium and mild hyperglycemia and otherwise unchanged from previous. blood cultures X2 negative to date. see previous notes for other testing, discussion and results from this stay. -cbc, cmp in the AM. -d/c IV fluids. continue day 4 of merpenem (will need 2 more days). continue current vitamin C, PO iron, albuterol nebs prn, budesonide inhaled, mucinex , vitamin B12, PO potassium, IV zofran prn, folic acid, celexa, risperdone, gabapentin at decreased dose, PO lasix, PO spironolactone, ventolin prn, dilantin, plavix, synthroid, remeron at decreased dose, PO tylenol prn, nystatin topical prn. continue to hold prn low dose ativan at night. continue hold parameters given for bp meds. continue parameters given for albuterol inhaler as well. -Dr. Cox of neurology consulted for anti-epeleptic med management as well as encephalopathy. he sees the patient as outpatient. Dr. Cmobs of infectious disease consulted as well. -further management pending the above. constipation chronic dyspepsia -continue home bisacodyl, docusate, mild of magnesia, miralax, metamucil, mylanta. RLS -continue home ropinirole osteoarthritis -continue home capsasin topical prn and tylenol prn as above. dry eye -continue home systane eye drops. GERD -continue home protonix. all other chronic medical conditions stable and no other changes to plan of care at this time. ppx -continue SCD's and SQ lovenox at DVT prophylaxis dose for DVT ppx. -continue PO protonix and PO diet for GI prophylaxis. -DNR/DNI. -dispo continue inpatient today. goal is for discharge by Monday or of this week. - Time spent with patient Time with patient PN: 25 minutes Sepsis Assessment - Evaluation Confirmed Suspected Infection: Yes
[2017-05-01] MEDS: PHENYTOIN 300 MG CAPSULE PO SCH (20:32)
[2017-05-01] MEDS: FOLIC ACID 1 MG TABLET PO SCH ×2 (20:33→22:12)
[2017-05-01] MEDS: MIRTAZAPINE 15 MG TABLET PO SCH (20:35)
[2017-05-02] MEDS: MEROPENEM 1 GM in NS 100 ML IV SCH ×3 (01:29→16:51)
[2017-05-02] MEDS: LEVOTHYROXINE 125 MCG TABLET PO SCH (06:44)
[2017-05-02] MEDS: BUDESONIDE INH.SOLN 0.5mg/2ml NEB AEROSOL SCH ×2 (07:00→19:35)
[2017-05-02] MEDS: DOCUSATE SODIUM 100 MG CAPSULE PO SCH ×2 (09:39→21:27)
[2017-05-02] MEDS: SPIRONOLACTONE 25 MG TABLET PO SCH ×2 (09:39→21:30)
[2017-05-02] MEDS: LACOSAMIDE 100mg TABLET PO SCH ×2 (09:39→21:27)
[2017-05-02] MEDS: CYANOCOBALAMIN (B-12) 500mcg TABLET PO SCH (09:39)
[2017-05-02] MEDS: FUROSEMIDE 40 MG TABLET PO SCH ×2 (09:39→16:51)
[2017-05-02] MEDS: RisperiDONE 0.5 MG TABLET PO SCH ×2 (09:39→21:28)
[2017-05-02] MEDS: GABAPENTIN 400 MG CAPSULE PO SCH ×3 (09:39→21:27)
[2017-05-02] MEDS: ROPINIROLE 1 MG TABLET PO SCH ×2 (09:39→21:29)
[2017-05-02] MEDS: Bisacodyl EC TAB 5 MG TABLET PO SCH (09:40)
[2017-05-02] MEDS: FERROUS SULFATE 324 MG TABLET PO SCH ×2 (09:40→18:34)
[2017-05-02] MEDS: ENOXAPARIN 40 MG/0.4 ML INJECTION SQ SCH (09:40)
[2017-05-02] MEDS: ASCORBIC ACID 500 MG TABLET PO SCH ×2 (09:40→18:34)
[2017-05-02] MEDS: CITALOPRAM 40 MG TABLET PO SCH (09:40)
[2017-05-02] MEDS: CLOPIDOGREL 75 MG TABLET PO SCH (09:40)
[2017-05-02] MEDS: PANTOPRAZOLE 40 MG TABLET PO SCH (09:40)
[2017-05-02] MEDS: POLYETHYL GLYCOL 3350 17gm PACKET PO SCH (09:54)
[2017-05-02] MEDS: SYSTANE EYE DROPS 0.7ml EACH EYE SCH ×3 (10:54→21:32)
--- NOTE | 2017-05-02 14:00 | Progress Note ---
- Date 05/02/2017 Subjective: no acute events overnight. no events called on telemetry. patient doing much better today. feels stronger. very interactive. cognition remains at baseline. no abdominal pain. she had some nausea briefly for a while today but this passed very quickly. no vomiting. no headaches, vision changes, ear pain, sinus pain, sore throat. no runny nose. no dizziness, syncope. she was up to chair a lot today she says. no nausea on moving now like before. worked with PT/OT much better today. no chest pain, SOA, fevers, chills, body aches, fatigue, weakness, night sweats, other constitutional symptoms. appetite good and tolerating PO food. is getting regular diet per speech therapy recs. no falls, trauma, injuries. no cough, sputum production, palpitations, hemoptysis. no orthopnea, PND, new edema, leg asymmetery. no new skin changes or rashes. no abdominal pain, vomiting. she had X 1 normal loose green bowel movement earlier today. no bloody/black stools. no mucous in stools. still incontinant of urine and no changes there. no dysuria, hematuria, bowel incontinance. no hematuria, flank pain or other urinary symptoms. no mood changes or psychiatric symptoms. ROS negative for delerium, fredy, depression, anxiety, psychosis, altered mentation/sensorum. has been alert and oriented X3 all day. she is requesting her ativan be restarted to help her sleep. no new issues otherwise at this time. Objective Vital signs: Temperature 96.4 F L 05/01/17 23:56 Pulse Rate 73 05/02/17 09:35 Respiratory Rate 18 05/02/17 07:52 Blood Pressure 124/59 05/02/17 09:35 Pulse Oximetry 92 05/02/17 07:52 Rhythm: Normal Sinus Rhythm Height/Weight/BMI: Height 1.63 m Weight 81.8 kg Body Mass Index 31.6 - Constitutional Present: no acute distress (patient not ill appearing.), obese, cooperative. Absent: cachectic, diaphoretic, disheveled, combative, agitated, somnolent, obtunded - Routine HEENT Exam Head: Present: normocephalic, atraumatic ENT: Present: mucous membranes moist - Routine Respiratory Exam Present: CTA bilaterally. Absent: accessory muscle use, patient mechanically ventilated, dyspnea, decreased breath sounds, prolonged expiratory phase, rales , respiratory distress, rhonchi, stridor, wheezes, crackles, distant breath sounds, diminished air movement Comments: lung sounds heard in all lung varghese b/l at this time. - Routine Cardiovascular Exam Comments: cardiac exam unchanged from previous. no new edema. legs symmetrical and compartments soft b/l in LE's at this time. clinically well perfused in all 4 extremities b/l at this time. - Routine Abdominal Exam Present: soft (X4.), normoactive bowel sounds (X4.), non distended (X4.), non tender (X4.). Absent: tenderness (X4.), distended (X4.), rebound, guarding, firm, rigid, organomegaly, mass Comments: no ascites or jaundice. - Routine Extremities Exam Absent: cyanosis, joint swelling, pallor, extremity cold to touch - Routine Back/Spine/Pelvis Exam Comments: no flank pain b/l at this time. - Routine Musculoskeletal Exam Musculoskeletal: Present: no joint swelling, no tenderness, no erythema, moving extremities well. Absent: joint erythera, joint swelling - Routine Skin Exam Present: intact Comments: no changes from previous to uncovered areas. no clinical evidence of skin/soft tissue infection at this time. - Routine Neurological Exam Present: alert, oriented X3 no focal deficits grossly. unchanged from yesterday's baseline. no clinical evidence of delerium, fredy, depression, anxiety, altered mentation/sensorum, psychosis. affect and cognition still at patient's usual baseline from pre- illness. - Routine Psychiatric Exam Present: normal affect, normal thought process, cooperative. Absent: auditory hallucinations, visual hallucinations, tactile hallucinations, depressed, anxious, agitated, paranoid, manic Comments: see above. Results - Labs CBC & Chem 7: 05/02/17 04:41 05/02/17 04:41 Microbiology Results: Microbiology 04/25/17 21:30 Peripheral/Iv Start Blood Culture - Final No Growth After 5 Days 04/25/17 21:36 Peripheral/Iv Start Blood Culture - Final No Growth After 5 Days Assessment and Plan DVT Prophylaxis: SCD's, Lovenox GI Prophylaxis: Protonix, other (PO diet.) Resuscitation Status: Do Not Resuscitate (DNR/DNI.) Assessment and Plan: acute UTI and sepsis syndrome from ESBL echoli with altered mental status, nausea/ vomiting, abdominal pain, improving. X1 loose bowel movement earlier today, likely from combination of antibiotics and stool softners mild to moderate dehydration and poor PO intake, resolved mild dilutional anemia hypokalemia hypertension hypothyroid depression anxiety COPD asthma iron deficiency seizure disorder obstructive sleep apnea insomnia chronic peripheral neropathy history of TIA's and cerebrovascular disease chronic tinea interigo -continue inpatient, routine vitals with call parameters, I's and O's, daily weights, activity up with assist only, oxygen as needed. continue home oxygen at night and home CPAP. continue PO regular diet. patient taking oral meds well. ST re-evaluated patient and started regular diet and patient doing well with this. PT/OT consulted and following. -cbc's with improving dilutional anemia and otherwise unremarkable. cmp's with mildly elevated surgars which are stable, K of 3.4 and otherwise unremarkable. stool for blood and c-diff negative. see previous notes for other testing, discussion and results from this stay. -cbc, cmp in the AM. stool PCR pending. -d/c IV fluids. continue day 5 of merpenem (will need 1 more day). continue current vitamin C, PO iron, albuterol nebs prn, budesonide inhaled, mucinex , vitamin B12, PO potassium, IV zofran prn, folic acid, celexa, risperdone, gabapentin at decreased dose, PO lasix, PO spironolactone, ventolin prn, dilantin, plavix, synthroid, remeron at decreased dose, PO tylenol prn, nystatin topical prn. restart PO ativan at 0.5mg PO qHS prn insomnia which is half the dose she was getting before. continue hold parameters given for bp meds. continue parameters given for albuterol inhaler/nebs as well. replacing potassium with some extra PO potassium today. -Dr. Cox of neurology consulted for anti-epeleptic med management as well as encephalopathy. he sees the patient as outpatient. Dr. Combs of infectious disease consulted as well. -further management pending the above. constipation chronic dyspepsia -hold home bisacodyl, docusate, mild of magnesia, miralax, metamucil, mylanta. RLS -continue home ropinirole osteoarthritis -continue home capsasin topical prn and tylenol prn. dry eye -continue home systane eye drops. GERD -continue home protonix. all other chronic medical conditions stable and no other changes to plan of care at this time. ppx -continue SCD's and SQ lovenox at DVT prophylaxis dose for DVT ppx. -continue PO protonix and PO diet for GI prophylaxis. -DNR/DNI. -dispo continue inpatient today. goal is to discharge tomorrow back to [place]. will see what PT/OT recommends for therapies. - Time spent with patient Time with patient PN: 25 minutes Sepsis Assessment - Evaluation Confirmed Suspected Infection: Yes
[2017-05-02] MEDS: ONDANSETRON 4 MG/2 ML INJECTION IVP PRN (14:51)
[2017-05-02] MEDS: SALINE FLUSH 10ml SYRINGE IV PRN (16:51)
[2017-05-02] MEDS ORDERED: NS FLUSH BAG 500ml IV PRN (16:52)
[2017-05-02] MEDS: MIRTAZAPINE 15 MG TABLET PO SCH (21:27)
[2017-05-02] MEDS: PHENYTOIN 300 MG CAPSULE PO SCH (21:33)
[2017-05-02] MEDS: LORazepam 0.5 MG TABLET PO SCH (22:02)
[2017-05-03] MEDS: MEROPENEM 1 GM in NS 100 ML IV SCH ×3 (01:05→16:51)
[2017-05-03] MEDS: LEVOTHYROXINE 125 MCG TABLET PO SCH (06:35)
[2017-05-03] MEDS: FERROUS SULFATE 324 MG TABLET PO SCH ×2 (08:17→16:50)
[2017-05-03] MEDS: GABAPENTIN 400 MG CAPSULE PO SCH ×3 (08:17→20:43)
[2017-05-03] MEDS: PANTOPRAZOLE 40 MG TABLET PO SCH (08:17)
[2017-05-03] MEDS: RisperiDONE 0.5 MG TABLET PO SCH ×2 (08:18→20:42)
[2017-05-03] MEDS: ASCORBIC ACID 500 MG TABLET PO SCH ×2 (08:18→16:50)
[2017-05-03] MEDS: SPIRONOLACTONE 25 MG TABLET PO SCH ×2 (08:18→20:43)
[2017-05-03] MEDS: CITALOPRAM 40 MG TABLET PO SCH (08:18)
[2017-05-03] MEDS: FUROSEMIDE 40 MG TABLET PO SCH ×2 (08:19→16:50)
[2017-05-03] MEDS: ROPINIROLE 1 MG TABLET PO SCH ×2 (08:19→20:43)
[2017-05-03] MEDS: CLOPIDOGREL 75 MG TABLET PO SCH (08:19)
[2017-05-03] MEDS: ENOXAPARIN 40 MG/0.4 ML INJECTION SQ SCH (08:19)
[2017-05-03] MEDS: LACOSAMIDE 100mg TABLET PO SCH ×2 (08:20→20:42)
[2017-05-03] MEDS: CYANOCOBALAMIN (B-12) 500mcg TABLET PO SCH (08:20)
[2017-05-03] MEDS: SYSTANE EYE DROPS 0.7ml EACH EYE SCH ×3 (08:23→20:45)
--- NOTE | 2017-05-03 09:07 | Progress Note ---
Subjective Date: 05/03/17 Subjective: She denies any nausea today. Reports that the suprapubic/abdominal pain that she had is now resolved. Denies dysuria, fever or chills. Exam Vital Signs: Temperature 97.8 F 05/03/17 07:00 Pulse Rate 59 L 05/03/17 07:00 Respiratory Rate 18 05/03/17 07:00 Blood Pressure 97/51 05/03/17 07:00 Pulse Oximetry 91 05/03/17 07:00 Height/Weight/BMI: Height 1.63 m Weight 82.2 kg Body Mass Index 31.6 - Constitutional Present: no acute distress, well nourished, well developed - Routine HEENT Exam Head: Present: normocephalic, atraumatic Eye: Present: EOMI, PERRL ENT: Present: mucous membranes moist, dentition normal - Routine Neck Exam Present: supple - Routine Respiratory Exam Present: CTA bilaterally. Absent: accessory muscle use - Routine Cardiovascular Exam Present: RRR. Absent: murmur - Routine Abdominal Exam Present: soft, normoactive bowel sounds, non distended. Absent: tenderness - Routine Extremities Exam Absent: cyanosis, clubbing, edema - Routine Skin Exam Present: intact, wounds (LLE, covered. No surrounding erythema). Absent: rash - Routine Neurological Exam Present: alert, oriented X3, CN II-XII intact - Routine Psychiatric Exam Present: normal affect Results - Labs CBC & Chem 7: 05/03/17 04:00 05/03/17 04:00 Microbiology Results: Microbiology 04/25/17 21:30 Peripheral/Iv Start Blood Culture - Final No Growth After 5 Days 04/25/17 21:36 Peripheral/Iv Start Blood Culture - Final No Growth After 5 Days Impression: UTI with ESBL E. coli AMS/encephalopathy. Unknown if she has an element of baseline dementia. Seizure disorder H/o CVA PCN allergy Recommendation: Today is day #7 of carbapenem therapy. I would stop after today. I'll see her again as needed.
[2017-05-03] MEDS: ALBUTEROL/IPRATROPIUM 2.5mg-0.5mg/3ml NEB AEROSOL PRN ×2 (10:12→20:25)
[2017-05-03] MEDS: BUDESONIDE INH.SOLN 0.5mg/2ml NEB AEROSOL SCH ×2 (10:12→20:25)
--- NOTE | 2017-05-03 13:56 | Progress Note ---
- Date 05/03/17 Subjective: see below for physical exam today. see the other progress notes from today for other results, vitals, assessment, plan, subjective as it was signed before the physical exam was added. consider this an extension of that note. Objective Vital signs: Temperature 97.8 F 05/03/17 07:00 Pulse Rate 55 L 05/03/17 08:07 Respiratory Rate 20 05/03/17 10:00 Blood Pressure 97/51 05/03/17 07:00 Pulse Oximetry 96 05/03/17 10:00 Rhythm: Normal Sinus Rhythm Height/Weight/BMI: Height 1.63 m Weight 82.2 kg Body Mass Index 31.6 - Constitutional Present: no acute distress (patient not ill appearing.), obese, cooperative. Absent: cachectic, diaphoretic, disheveled, combative, agitated, somnolent, obtunded - Routine HEENT Exam Head: Present: normocephalic, atraumatic Eye: Present: EOMI, PERRL ENT: Present: mucous membranes moist - Routine Respiratory Exam Present: CTA bilaterally. Absent: accessory muscle use, patient mechanically ventilated, dyspnea, decreased breath sounds, prolonged expiratory phase, rales , respiratory distress, rhonchi, stridor, wheezes, crackles, distant breath sounds, diminished air movement - Routine Cardiovascular Exam Comments: cardiac exam unchanged from previous. no new edema. legs symmetrical and compartment soft b/l in LE's at this time. clinically well perfused in all 4 extremities b/l at this time. - Routine Abdominal Exam Present: soft (X4.), normoactive bowel sounds (X4.), non distended (X4.), non tender (X4.). Absent: tenderness (X4.), distended (X4.), rebound, guarding, firm, rigid, organomegaly, mass Comments: no ascites or jaundice. - Routine Exam Comments: no tenderness over bladder area. no flank pain b/l at this time. - Routine Extremities Exam Present: non tender. Absent: cyanosis, joint swelling, extremity cold to touch - Routine Back/Spine/Pelvis Exam Comments: see above. - Routine Musculoskeletal Exam Musculoskeletal: Present: no clubbing or cyanosis, no joint swelling, no tenderness, no erythema, moving extremities well. Absent: joint erythera, joint swelling - Routine Skin Exam Present: intact Comments: no clinical evidence of skin/soft tissue infection. no new rashes to uncovered areas. - Routine Neurological Exam Present: alert, oriented X3. Absent: altered mental status knows who the president is. no focal deficits grossly. CN2-12 in tact. sensation/motor/muscle strength/DTR's normal and symmetrical b/l at this time. no clinical evidence of delerium, frdey, depression, anxiety, altered mentation/ sensorum, psychosis from patient's usual baseline. - Routine Psychiatric Exam Present: normal affect, normal thought process (for patient.), cooperative. Absent: auditory hallucinations, visual hallucinations, tactile hallucinations, depressed, anxious, agitated, paranoid, manic Comments: see above. Results - Labs CBC & Chem 7: 05/03/17 04:00 05/03/17 04:00 Microbiology Results: Microbiology 04/25/17 21:30 Peripheral/Iv Start Blood Culture - Final No Growth After 5 Days 04/25/17 21:36 Peripheral/Iv Start Blood Culture - Final No Growth After 5 Days
--- NOTE | 2017-05-03 18:17 | Progress Note ---
- Date 05/03/17 Subjective: patient doing well. almost back to baseline but still a bit weak. got up twice today on her feet and tolerated well. no headaches, stroke symptoms, syncope, dizziness, falls, trauma, injuries. no fevers, chills, body aches, focal neurologic deficits, seizure symptoms, vision changes, photophobia, meningeal symptoms. able to get up to chair without difficulty. no ear pain, sinus pain, sore throat, runny nose. ROS negative for altered mentation/ sensorum, delerium, depression, anxiety, confusion, depressed alertness. no new skin changes or rashes. no chest pain, SOA, orthopnea, PND, new edema, leg asymmetry. no cough, sputum production, hemoptysis. no palpitations. no abdominal pain, nausea, vomiting, GERD symptoms. no hematemesis, coffee ground emesis, melena, BRBPR, constipation, bloody/black stools. she hasn't had a BM since yesterday she says. still incontinant of urine. no dysuria, hematuria, flank pain, other urinary symptoms/changes. no new issues otherwise at this time. Objective Vital signs: Temperature 97.7 F 05/03/17 16:15 Pulse Rate 70 05/03/17 16:15 Respiratory Rate 20 05/03/17 16:15 Blood Pressure 110/54 05/03/17 16:15 Pulse Oximetry 92 05/03/17 16:15 Rhythm: Normal Sinus Rhythm Height/Weight/BMI: Height 1.63 m Weight 82.2 kg Body Mass Index 31.6 Results - Labs CBC & Chem 7: 05/03/17 04:00 05/03/17 04:00 Microbiology Results: Microbiology 04/25/17 21:30 Peripheral/Iv Start Blood Culture - Final No Growth After 5 Days 04/25/17 21:36 Peripheral/Iv Start Blood Culture - Final No Growth After 5 Days Assessment and Plan Assessment and Plan: acute UTI and sepsis syndrome from ESBL echoli with altered mental status, nausea/ vomiting, abdominal pain, improving. loose bowel movement X1 yesterday, likely from combination of antibiotics and stool softners mild to moderate dehydration and poor PO intake, resolved mild dilutional anemia hypokalemia hypertension hypothyroid depression anxiety COPD asthma iron deficiency seizure disorder obstructive sleep apnea insomnia chronic peripheral neropathy history of TIA's and cerebrovascular disease chronic tinea interigo -continue inpatient, routine vitals with call parameters, I's and O's, daily weights, activity up with assist only, oxygen as needed. continue home oxygen at night and home CPAP. continue PO regular diet. patient taking oral meds well. PT/OT consulted and following. -cbc's with overall improving dilutional anemia and otherwise unremarkable. cmp's with normal potassium today, mildly elevated surgars which are stable and otherwise unremarkable. see previous notes for other testing, discussion and results from this stay. -cbc, cmp in the AM. stool PCR pending. -continue and finish last day of carbapenem (meropenem IV) therapy today. continue current vitamin C, PO iron, albuterol nebs prn, budesonide inhaled, mucinex , vitamin B12, PO potassium, IV zofran prn, folic acid, celexa, risperdone, gabapentin at decreased dose, PO lasix, PO spironolactone, ventolin prn, dilantin, plavix, synthroid, remeron at decreased dose, PO tylenol prn, nystatin topical prn, PO ativan prn qHS, continue hold parameters given for bp meds. continue parameters given for albuterol inhaler/nebs as well. -Dr. Cox of neurology consulted for anti-epeleptic med management as well as encephalopathy. he sees the patient as outpatient. Dr. Combs of infectious disease consulted as well. -further management pending the above. constipation chronic dyspepsia -continue to hold home bisacodyl, docusate, mild of magnesia, miralax, metamucil, mylanta. RLS -continue home ropinirole osteoarthritis -continue home capsasin topical prn and tylenol prn. dry eye -continue home systane eye drops. GERD -continue home protonix. all other chronic medical conditions stable and no other changes to plan of care at this time. ppx -continue SCD's and SQ lovenox at DVT prophylaxis dose for DVT ppx. -continue PO protonix and PO diet for GI prophylaxis. -DNR/DNI. -dispo continue inpatient today. finish IV antibiotics today. patient still weaker than I'd like before she goes home. will have PT/OT give opinion today and likely send patient back to [facility] tomorrow with continued PT/OT. Hospital Course Summary Disclaimer: The visit summary below is not to be considered part of the above Progress Note.
[2017-05-03] MEDS: PHENYTOIN 300 MG CAPSULE PO SCH (20:42)
[2017-05-03] MEDS: LORazepam 0.5 MG TABLET PO SCH (20:42)
[2017-05-03] MEDS: FOLIC ACID 1 MG TABLET PO SCH ×2 (20:43→23:15)
[2017-05-03] MEDS: MIRTAZAPINE 15 MG TABLET PO SCH (20:43)
[2017-05-04] MEDS: MEROPENEM 1 GM in NS 100 ML IV SCH (00:45)
[2017-05-04] MEDS: SALINE FLUSH 10ml SYRINGE IV PRN (00:45)
[2017-05-04] MEDS: LEVOTHYROXINE 125 MCG TABLET PO SCH (06:35)
[2017-05-04] MEDS: RisperiDONE 0.5 MG TABLET PO SCH (09:14)
[2017-05-04] MEDS: CLOPIDOGREL 75 MG TABLET PO SCH (09:14)
[2017-05-04] MEDS: GABAPENTIN 400 MG CAPSULE PO SCH ×2 (09:15→15:36)
[2017-05-04] MEDS: CITALOPRAM 40 MG TABLET PO SCH (09:15)
[2017-05-04] MEDS: FERROUS SULFATE 324 MG TABLET PO SCH (09:15)
[2017-05-04] MEDS: FUROSEMIDE 40 MG TABLET PO SCH (09:15)
[2017-05-04] MEDS: CYANOCOBALAMIN (B-12) 500mcg TABLET PO SCH (09:16)
[2017-05-04] MEDS: LACOSAMIDE 100mg TABLET PO SCH (09:16)
[2017-05-04] MEDS: ROPINIROLE 1 MG TABLET PO SCH (09:16)
[2017-05-04] MEDS: SYSTANE EYE DROPS 0.7ml EACH EYE SCH ×2 (09:17→15:36)
[2017-05-04] MEDS: ASCORBIC ACID 500 MG TABLET PO SCH (09:17)
[2017-05-04] MEDS: ENOXAPARIN 40 MG/0.4 ML INJECTION SQ SCH (09:17)
[2017-05-04] MEDS: PANTOPRAZOLE 40 MG TABLET PO SCH (09:17)
[2017-05-04] MEDS: SPIRONOLACTONE 25 MG TABLET PO SCH (09:19)
[2017-05-04] MEDS: BUDESONIDE INH.SOLN 0.5mg/2ml NEB AEROSOL SCH (11:10)
[2017-05-04] MEDS: ALBUTEROL/IPRATROPIUM 2.5mg-0.5mg/3ml NEB AEROSOL PRN (11:10)
--- NOTE | 2017-05-04 11:25 | Discharge Instructions ---
Discharge Plan - Med Rec/Dispo Referrals/Follow Up: Crow Moralez, [Family Provider] - 2 Weeks (cbc, dilantin level and cmp done at [facility] the day before and sent to Dr. Moralez. ICD 10 codes for this are D64.9, G40.909 and N39.0. PLEASE MAKE THIS FOLLOW UP AT [facility] DR. MORALEZ WILL GO OUT TO SEE HER THERE. THANKS. JULIUS.) [facility] Instructions: Urinary Traction Infection in Older Adults (GEN) Additional Instructions: -TO NURSING AT [facility]......please discontinue all lines, IV's and telemetry the patient didn't come in on before discharge. -if any issues worsen and/or new ones occur be seen immediately. -TO NURSING AT [facility]..................................please continue patient's usual 2 liters of oxygen at night as well as her home CPAP at her usual settings. -TO NURSING AT [facility]...................PLEASE MAKE SURE PATIENT HAS APPOINTMENT SCHEDULED WITH DR. CARVALHO OF NEUROLOGY (PATIENT FOLLOWS OUTPATIENT). IF NOT THEN GET HER IN FOR APPOINTMENT WITHIN THE NEXT MONTH. THIS IS FOR HER HISTORY OF SEIZURES. -patient may use albuterol nebulizer or albuterol inhaler every 6 hours but not both together. -TO NURSING AT [facility]..........please hold patient's dulcolax, metamucil, miralax, milk of magnesia and colace if patient having loose stools. -TO NURSING STAFF AT [facility].........PLEASE CONSULT PHYSICAL THERAPY AND OCCUPATIONAL THERAPY AT [facility] TO EVALUATE AND TREAT FOR GENERALIZED DEBILITY, DECLINE AND DECONDITIONING. Prescriptions: New Ascorbic Acid [Vitamin C] 500 mg PO BIDWM 30 Days #60 tab LORazepam [Ativan] 0.5 mg PO HS PRN 30 Days #30 tablet PRN Reason: Insomnia Mirtazapine [Remeron] 15 mg PO HS 30 Days #30 tab Gabapentin [Neurontin] 400 mg PO TID 30 Days #90 cap Continue Citalopram Hydrobromide [Citalopram HBr] 40 mg PO DAILY #0 Bisacodyl [Dulcolax] 5 mg PO DAILY #0 Budesonide Flexhaler [Pulmicort 180 Mcgflexhaler] 2 puff INH BID #0 Levothyroxine Sodium 62.5 mcg PO ACB #0 risperiDONE [Risperidone] 0.5 mg PO BID Ropinirole [Requip] 1 mg PO BID Ferrous Sulfate 325 mg PO BID Ondansetron Odt [Zofran Po] 4 mg PO Q6HR PRN PRN Reason: Nausea &/Or Vomiting Menthol/Zinc Oxide [Moisture Barrier Ointment] 1 applic TP BID PRN PRN Reason: Rash Magnesium Hydroxide [Milk of Magnesia] 30 ml PO HS PRN PRN Reason: Constipation Albuterol/Ipratropium [Duoneb] 1 unit AEROSOL QID PRN PRN Reason: Prn Orders Capsaicin 1 applic TP Q6H PRN PRN Reason: Pain Albuterol HFA Inhaler [Ventolin Hfa 90 mcg/actuation] 2 puff ORAL INH Q6HR PRN PRN Reason: Shortness Of Air/Wheezing Phenytoin Cap [Phenytek] 300 mg PO HS Propylene Glycol/Peg 400 [Systane Ultra 0.4-0.3% Eye Drp] 1 drop EACH EYE TID Psyllium [Metamucil] 1 packet PO DAILY PRN PRN Reason: Constipation Potassium Chloride 10 meq PO TID #0 Spironolactone [Aldactone] 25 mg PO BID #0 Docusate Sodium [Colace] 100 mg PO BID #0 Furosemide [Lasix] 40 mg PO BID #0 Lacosamide [Vimpat] 150 mg PO BID #0 Clopidogrel Bisulfate [Plavix] 75 mg PO DAILY #0 Folic Acid 1 mg PO Q2D #0 Pantoprazole Sodium 40 mg PO DAILY #0 Polyethylene Glycol 3350 [Miralax] 17 g PO DAILY #0 Nystatin 1 applic TP BID PRN PRN Reason: Prn Orders guaiFENesin [Mucinex] 600 mg PO Q12H PRN PRN Reason: Congestion Acetaminophen 650 mg PO Q4H PRN PRN Reason: Pain Cyanocobalamin (Vitamin B-12) [Vitamin B-12] 1,000 mcg PO DAILY Discontinued Ascorbic Acid [Vitamin C] 500 mg PO DAILY #0 LORazepam [Ativan] 1 mg PO HS PRN PRN Reason: Anxiety Mirtazapine [Remeron] 30 mg PO HS CephALEXin [Keflex] 500 mg PO BID #14 cap Gabapentin 800 mg PO TID #0 Discharge Instructions/Outpatient Orders: Provider Discharge Instructions Location: Determined By Patient - Disposition 04 To [facility] Home/Facility
--- NOTE | 2017-05-04 12:49 | Extended Care Facility Orders ---
Admission Orders Admit to:: Other (group home. Going back to [facility]. ) Allergies/Adverse Reactions: Allergies latex Allergy (Severe, Verified 04/25/17 09:35) RASH aspirin Allergy (Unknown, Verified 04/25/17 09:35) Penicillins Allergy (Unknown, Verified 04/25/17 09:35) codeine Adverse Reaction (Unknown, Verified 04/25/17 09:35) NAUSEA Admitting Diagnosis: UTI/confusion Admitting Physician: Crow Moralez DO Attending Physician: Crow Moralez DO Code Status: Do Not Resuscitate and Do Not Intubate. Anticiapted Length of Stay: greater than 30 days Rehab Potential: fair Rehab Prognosis: fair Diet: 05/02/17 Lunch Regular Diet [DIET] Diet Modifications: Fluid Consistency: REGLIQU Wound/Incision Care: Please monitor perineal area daily. apply barrier cream twice per day to perineal area. call doctor if any skin breakdown noted. May use Facility Protocol or Standing Orders: Yes (no changes from previous standing orders.) May have flu vaccine: Yes (if hasn't had already this season.) Evaluations/Treatment: PT (debility, decline as well as activity orders.), OT ( for debility, decline as well as activity orders.) Residential Certification: I certify that SNF services are required to be given on an Inpatient basis because of the patients need for snf care on a continuing basis for the condition(s) for which he/she received inpatient hospital services prior to his/her transfer to the SNF. SNF inpatient care is necessary for the following reasons Indication for Residential: Other (going back to patient's shelter at [facility] here in [place], [place]. ) - Additional Information In Event of Arrest: Do Not Start CPR Resident is Aware of Diagnosis: Yes Laboratory/Radiology: get cbc and cmp done the day before follow up appointment with Dr. Moralez in 2 weeks. ICD codes for this are D64.9 and N39.0. thanks. Referrals: Crow Moralez DO [Family Provider] - 2 Weeks (cbc and cmp done at [facility] the day before and sent to Dr. Moralez. ICD 10 codes for this are D64.9 and N39.0. PLEASE MAKE THIS FOLLOW UP AT [facility] DR. MORALEZ WILL GO OUT TO SEE HER THERE. THANKS. JULIUS.)
--- NOTE | 2017-05-04 13:03 | Progress Note ---
- Date 05/04/17 Subjective: patient doing well. she walked about 15 feet today with stand-by. not back to her previous baseline yet but overall is feeling stronger. she states she wants to go back to [facility] today. no acute issues overnight. no events called on telemetry. no confusion, altered mentation, delerium symptoms. cognition at patient's usual baseline from before her illness. no falls, trauma , injuries. eating well and appetite good. no nausea at rest or when moving. no abdominal pain, nausea, vomiting, diarrhea, constipation. no more loose stools since the one 2 days ago. hasn't had a BM since then. still passing flatus normally. no abdominal distension. no bowel incontinance. urinary incontinance persists unchanged. no dysuria, hematuria, flank pain. no fevers , chills, body aches. fatigue improved greatly as is generalized weakness from admission. no headaches, vision changes, URI symptoms, sinus issues, seizure symptoms, dizziness, syncope, chest pain, SOA, orthopnea, PND, new edema, leg asymmetry. no skin changes or rashes and nursing has noted throughout no skin breakdown in perineal area. no new skin/soft tissue infection symptoms. vitals have been stable. no palpitations, cough, sputum production, hemoptysis. no hematemesis, GERD symptoms, coffee ground emesis, melena, BRBPR. mood very upbeat and no depression symptoms. no swollen or boggy joints. no new or changing musculoskeletal pain from baseline. no new issues otherwise at this time. Objective Vital signs: Temperature 97.8 F 05/04/17 07:28 Pulse Rate 69 05/04/17 08:00 Respiratory Rate 16 05/04/17 11:10 Blood Pressure 108/57 05/04/17 07:28 Pulse Oximetry 94 05/04/17 11:10 Rhythm: Normal Sinus Rhythm Height/Weight/BMI: Height 1.63 m Weight 80 kg Body Mass Index 31.6 - Constitutional Present: no acute distress (patient doesn't appear ill at this time. ), obese, cooperative (r). Absent: cachectic, diaphoretic, disheveled, combative, agitated, somnolent, obtunded - Routine HEENT Exam Head: Present: normocephalic, atraumatic Eye: Present: EOMI, PERRL ENT: Present: mucous membranes moist - Routine Respiratory Exam Present: CTA bilaterally. Absent: accessory muscle use, patient mechanically ventilated, dyspnea, decreased breath sounds, prolonged expiratory phase, rales , respiratory distress, rhonchi, stridor, wheezes, crackles, distant breath sounds, diminished air movement Comments: lung sounds heard in all lung varghese b/l at this time. - Routine Cardiovascular Exam Comments: cardiac exam unchanged from previous. clinically well perfused in all 4 extremities b/l at this time. legs symmetrical and compartment soft b/l in LE' s at this time. - Routine Abdominal Exam Present: soft (X4.), normoactive bowel sounds (X4.), non distended (X4.), non tender (X4.). Absent: tenderness (X4.), distended (X4.), rebound, guarding, firm, rigid, organomegaly, mass Comments: no ascites or jaundice. - Routine Exam Comments: no tenderness over bladder area. no flank pain b/l at this time. - Routine Extremities Exam Absent: cyanosis, joint swelling, pallor, extremity cold to touch - Routine Back/Spine/Pelvis Exam Comments: see above. - Routine Musculoskeletal Exam Musculoskeletal: Present: no joint swelling, no tenderness, no erythema, moving extremities well. Absent: joint erythera, joint swelling - Routine Skin Exam Present: intact Comments: no skin changes or new rashes to uncovered areas. no clinical evidence of skin/ soft tissue infection. - Routine Neurological Exam Present: alert, oriented X3 no focal deficits at this time. no changes from yesterday's exam. no photophobia. no clinical evidence of meningitis at this time. - Routine Psychiatric Exam Present: normal affect, normal thought process (for patient.), cooperative. Absent: suicidal ideation, homicidal ideation, auditory hallucinations, visual hallucinations, tactile hallucinations, depressed, anxious, agitated, paranoid, manic Results - Labs CBC & Chem 7: 05/04/17 04:15 05/04/17 04:15 Microbiology Results: Microbiology 04/25/17 21:30 Peripheral/Iv Start Blood Culture - Final No Growth After 5 Days 04/25/17 21:36 Peripheral/Iv Start Blood Culture - Final No Growth After 5 Days Assessment and Plan DVT Prophylaxis: SCD's, Lovenox GI Prophylaxis: Protonix, other (PO diet while here. ) Resuscitation Status: Do Not Resuscitate (DNR/DNI.) Assessment and Plan: acute UTI and sepsis syndrome from ESBL echoli with altered mental status, nausea/ vomiting, abdominal pain, improving. loose bowel movement X1 2 days ago, likely from combination of antibiotics and stool softners mild to moderate dehydration and poor PO intake, resolved mild dilutional anemia hypokalemia hypertension hypothyroid depression anxiety COPD asthma iron deficiency seizure disorder obstructive sleep apnea insomnia chronic peripheral neropathy history of TIA's and cerebrovascular disease chronic tinea interigo -discharge to [facility] today. patient doing well and very close to back to previous baseline. -cbc's normal now. cmp's normal now. couldn't get stools PCR as diarrhea has resolved. see previous notes for other testing, discussion and results from this stay. -carbipenem therapy completed. continue current vitamin C, PO iron, albuterol nebs prn, budesonide inhaled, mucinex, vitamin B12, PO potassium. will convert zofran back to PO. continue current folic acid, celexa, risperdone, gabapentin at decreased dose, PO lasix, PO spironolactone, ventolin prn, dilantin, plavix, synthroid, remeron at decreased dose, PO tylenol prn, nystatin topical prn. continue PO ativan prn at night at decreased dose. continue hold parameters given for bp meds. continue parameters given for albuterol inhaler/nebs as well. -follow up with us in 2 weeks with cbc, cmp, dilantin level before. dilantin levels should come up now that patient taking PO meds and not nauseaous. -Dr. Cox of neurology consulted for anti-epeleptic med management as well as encephalopathy. he sees the patient as outpatient. Dr. Combs of infectious disease consulted as well. constipation chronic dyspepsia -restart home bisacodyl, docusate, mild of magnesia, miralax, metamucil, mylanta and put parameters to hold for any loose stools. RLS -continue home ropinirole osteoarthritis -continue home capsasin topical prn and tylenol prn. dry eye -continue home systane eye drops. GERD -continue home protonix. all other chronic medical conditions stable and no other changes to plan of care at this time. ppx -continue SCD's and SQ lovenox at DVT prophylaxis dose for DVT ppx while inpatient. -continue PO protonix and PO diet for GI prophylaxis. -DNR/DNI. -dispo discharge back to [facility] today. see discharge summary and orders for further details. - Time spent with patient Time with patient PN: 50 minutes (50 minutes doing discharge.) Sepsis Assessment - Evaluation Confirmed Suspected Infection: Yes
[2017-05-04 15:07] VITALS: BP 102/54; PULSE 63; RESP 18; TEMP 98.1; O2SAT 95
--- NOTE | 2017-05-05 11:47 | Discharge Summary ---
ATTENDING PHYSICIAN Dr. Burton of [facility] CONSULTING PHYSICIAN Dr. Cox of Neurology Dr. Combs of Infectious Disease ADMITTING PHYSICIAN Dr. Burton of [facility] ANCILLARY SERVICES WHILE HERE Physical therapy and Occupational therapy saw the patient. DISCHARGE DIAGNOSES 1. Acute urinary tract infection and sepsis syndrome from ESBL E. coli with altered mental status, nausea/vomiting, abdominal pain which has effectively resolved. 2. Loose bowel movement x1 episode a couple of days previous with none thereafter. This is likely from a combination of antibiotics and stool softeners. 3. Mild to moderate dehydration on admission which has resolved. 4. Mild dilutional anemia which has resolved. 5. Hypokalemia. 6. Hypothyroidism. 7. Constipation. 8. Obstructive sleep apnea. 9. Anxiety. 10. Depression. 11. Seizure disorder. 12. Insomnia. DISCHARGE MEDICINES ARE FOLLOWS 1. Vitamin C 500 mg p.o. b.i.d. with meals. 2. Ativan 0.5 mg p.o. q.h.s. p.r.n. insomnia. This was decreased from 1 mg p.o. q.h.s. as needed. 3. Remeron 15 mg p.o. q.h.s. This was decreased from Remeron 30 mg p.o. q.h.s. 4. Gabapentin 400 mg p.o. t.i.d. This was decreased from gabapentin 800 mg p.o. t.i.d. 5. Celexa 40 mg p.o. daily. 6. Dulcolax 5 mg p.o. daily as needed for constipation. 7. Pulmicort Flexhaler 180 mcg, two puffs inhaled b.i.d. 8. Synthroid 62.5 mg p.o. daily. 9. Risperdal 0.5 mg p.o. b.i.d. 10. Requip 1 mg p.o. b.i.d. 11. Ferrous sulfate 325 mg p.o. b.i.d. 12. Zofran 4 mg p.o. q.6h. p.r.n. nausea/vomiting. 13. Moisture barrier cream, one application twice per day to rash on groin. 14. Milk of Magnesia 30 mg p.o. q.h.s. p.r.n. constipation. 15. DuoNeb 1 unit aerosolized q.i.d. p.r.n. shortness of air/asthma symptoms. 16. Capsaicin cream, one application topically every 6 hours p.r.n. to knees bilaterally. 17. Ventolin inhaler, 90 mcg HFA, 2 puffs orally inhaled q.6h. p.r.n. asthma symptoms. 18. Phenytoin 300 mg p.o. q.h.s. 19. Systane Ultra eye drops, 1 drop each eye t.i.d. 20. Metamucil, 1 packet p.o. daily p.r.n. constipation. 21. Potassium chloride 10 mEq p.o. t.i.d. 22. Spironolactone 25 mg p.o. b.i.d. 23. Colace 100 mg p.o. b.i.d. p.r.n. constipation. 24. Lasix 40 mg p.o. b.i.d. 25. Lacosamide 150 mg p.o. b.i.d. 26. Plavix 75 mg p.o. daily. 27. Folic acid 1 mg orally every other day. 28. Protonix 40 mg p.o. daily. 29. MiraLAX 17 g orally daily in 8 ounces of water as needed for constipation. 30. Nystatin topical, one application topically b.i.d. for tinea intertrigo. 31. Mucinex 600 mg p.o. q.12h. p.r.n. congestion. 32. Tylenol 650 mg p.o. q.4h. p.r.n. pain/fever. 33. Vitamin B12 1000 mcg p.o. daily. This patient is discharged to [facility] in stable and good condition. Physical therapy and occupational therapy are consulted for continued therapies for debilitation and decline as well as activity recommendations. DIET Regular. ACTIVITY Activity as of this time is up with assist only and assist with all transfers. PATIENT INSTRUCTIONS 1. If any issues worsen and and/or new ones occur, the patient will be seen immediately. 2. If patient cannot make her appointments or access her medications, she will let us know right away. Orders given to nursing at [facility] to please discontinue all lines , IVs and telemetry before discharge. WOUND CARE Nursing to monitor perineal area daily. They will apply barrier cream twice per day to perineal area. They will call the doctor if any skin breakdown is noted. EXPECTED SIGNS/SYMPTOMS Patient's confusion, abdominal pain, fevers, chills should continue to stay resolved. Her generalized weakness and fatigue should continue to improve and eventually resolve. PAIN MANAGEMENT/TREATMENT 1. If the patient has any pain, she will let us know right away. 2. Notify physician. Return to care immediately if burning with urination, flank pain, fevers, chills, weakness, body aches, confusion, decreased alertness should occur. 3. Numbers given to contact Dr. Burton during business and after business hours. 4. Can quit phone call. This is not applicable as the patient does not smoke. PENDING LAB/RESULTS This will be through primary care. PERTINENT LABORATORY DONE DURING THE STAY Patient's white blood cell count was normal throughout. There was no bandemia. Hemoglobin did get as low as 11.3 and this was likely dilutional. By discharge it was normal at 12.5. The patient's hematocrit was 38.6 on discharge. It did get as low as 34.6 after rehydration. Platelets were normal. Rest of the CBCs were unremarkable while here. Sodiums were normal while here. Potassium did get as low as 3.4 but was replaced. Potassium was 3.9 on discharge. Alkaline phosphatase did get as high as 154 while here. The patient had no abdominal pain. This will be followed as an outpatient. It is possible it was from the antibiotics and should go down now that she is off the antibiotics. This will be followed as noted below. The rest of the liver functions tests were normal throughout. Protein indices were unremarkable in the chemistries. Coagulation studies on admission were normal. TSH this admission was normal at 4.6. Procalcitonin was normal on admission. Lactic acids x3 were normal on admission. Troponins x2 were negative while here. Creatinine kinase on admission was nonspecifically and mildly elevated at 216. CRP did get as high as 39.8. Given the patient's clinical improvement, we did not need to follow this again. Magnesium and phosphorus were normal while here. Stool for occult blood was negative as was stool for Clostridium difficile. Stool PCR panel was ordered but the patient did not have any diarrhea for the last two days previous to discharge so this was not obtained. Phenytoin level on admission was 9.0 which was from the patient's nausea and vomiting and not being able to take some of her medications. This should resolve as she is now able to take her oral medications. We will follow it as listed below. FOLLOWUP 1. The patient will see Dr. Burton at [facility] in two weeks with a CBC , CMP and a Dilantin level done the day before and sent to him. Dr. Burton will go out and see the patient at her residential at [facility]. Orders have been put in at his clinic as well for this. 2. To nursing at [facility], orders have been given to continue the patient's usual 2 liters of oxygen at night as well as her home CPAP at her usual settings. 3. Orders in to nursing staff at [facility] to please make sure the patient has an appointment scheduled with Dr. Cox for routine followup. This is her neurologist. 4. Orders given that the patient may use the DuoNeb or the albuterol inhaler every 6 hours but not both together. 5. Orders given to nursing at [facility] to please hold the patient's Dulcolax , Metamucil, MiraLAX, Milk of Magnesia and Colace if the patient is having loose stools. PERTINENT MICROBIOLOGY WHILE HERE Blood cultures x2 were negative during this stay. Blood cultures x2 from the ER visit earlier on the day of admission were negative. Urine culture from the ER visit did demonstrate greater than 100,000 colony-forming units of ESBL E. coli which was sensitive to carbapenems. It was also sensitive to tobramycin, however, given the potential toxicity of these medications, Infectious disease felt that carbapenems were the way to go. IMAGING WHILE HERE EKG x1 on admission was at the patient's usual baseline and unchanged. Noncontrast CT head on admission was essentially normal. CT of the abdomen and pelvis without contrast and with kidney stone protocol on admission was unremarkable. There are old compression fractures of T12, L1 and L2. These were not new. HISTORY OF PRESENT ILLNESS AND HOSPITAL COURSE This is a pleasant 81-year-old female known to our clinic. She resides at [facility] here in [place], [place] at her residential. It appears the patient began feeling unwell with fevers, nausea, vomiting, lower abdominal pain and altered mental status a couple of days previous to admission. She was seen in the emergency room on the day of admission and noted to have a urinary tract infection. She was initially sent back to her care facility but she continued to not do well that night and so she was admitted the same day by direct admit. The patient was initially started on IV Rocephin. Her mental status did not clear much in the couple of days she was on the Rocephin. Her urine culture came back with the bacteria noted above. Infectious Disease was consulted and the patient was started on carbapenem therapy. She was initially started on ertapenem and was switched to meropenem the day after as it is less expensive. She finished a total of 7-day course of carbapenem antibiotics. Her mental status cleared to baseline. Her strength improved quite a bit. She did work with physical therapy and occupational therapy while here. Her strength was not completely back to baseline by discharge, but she will be working with therapies as an outpatient to continue with this. Her abdominal pain, fevers, nausea and vomiting had resolved as well. She was incontinent of urine and this will be followed at [facility] as well. Please see above for the perineal cares. Please see above for the extensive imaging and laboratory evaluation undertaken for this particular condition as noted above. Please see above as well for pertinent followup and other information. Dr. Cox of neurology was consulted who agreed with our current management. The patient did have a loose bowel movements while here a couple of days previous to discharge. After her constipation medications were held, this resolved. This will likely also continue to resolve off the antibiotics. She wasn't having any such issues by discharge. She never had any other abdominal complaints with this and it only happened once really. Please see above for orders regarding this issue. Stool for Clostridium difficile as well as fecal occult blood were negative. Further stool workup was ordered but the patient did not have any diarrhea so the studies could not be obtained. We will follow this as an outpatient. In regards to the patient's mild to moderate dehydration, this was from the infection noted above. Please see above for the sepsis protocol. The patient was rehydrated with significant amounts of IV normal saline. She was initially treated with IV Zosyn. Her diet was gradually advanced and by discharge she was tolerating a regular diet quite well. This is an issue that had resolved by discharge. The patient did have an anemia while here. This was generally after the IV fluids were given. This resolved by discharge. There was no evidence of bleeding from history or physical exam during the stay. The patient did have a potassium as low as 3.4 while here. It was replaced both by IV means and orally and by discharge this was resolved. In regards to the patient's depression, anxiety and insomnia, some of her medications were decreased given that she was modestly obtunded on admission. She tolerated these well and so will continue these decreased doses by discharge. The Remeron was decreased as noted above. The Ativan at night as well as the Neurontin was decreased as well. I will see how she does with this as an outpatient. In regards to the patient's obstructive sleep apnea, she was maintained on her home oxygen and CPAP and she did well with this. In regards to the patient's COPD and asthma, these were stable on her current meds and nothing was changed there. In regards to the patient's history of seizure disorder, she was not taking her oral meds all that well as an outpatient. For this reason her Dilantin level came in a little low. Neurology was consulted as noted above. Will recheck it as an outpatient now that she is taking her oral meds well. Her other seizure meds were otherwise unaffected except for the gabapentin which was decreased just a little bit. In regards to the patient's constipation, will continue her home bowel regimen with instructions to hold for loose stools. All other chronic medical conditions stable and no changes to plan of care at this time. For DVT prophylaxis, the patient was put on SCDs and subcutaneous Lovenox at DVT prophylaxis dose while here. For GI prophylaxis, the patient was maintained on her home Protonix as well as given an oral diet as noted above. Patient was a DO NOT RESUSCITATE/DO NOT INTUBATE while here. DISPOSITION Discharge back to [facility] today. Please see the electronic medical record for further discussion, results and details as all these cannot be completely encompassed in one discharge summary. MTDD
== END 2017-05-04 15:45 | DRG 689 ==
LOC: MED 19:55
PROVIDERS: ADMIT Internal Medicine; ATTEND Internal Medicine